=== PATIENT | male | born 1945 | race Caucasian/White ===

== ENCOUNTER → 2019-06-21 16:04 | Outpatient (CLI) | payer OTHER, SELFPAY ==
[2019-06-21 16:44] LABS: Add Manual Diff / Slide Review NO; Basophils Absolute Auto 0 /uL (0-100); Basophils Percent Auto 0.6 % (0-2); Eosinophils Absolute Auto 200 /uL (0-450); Eosinophils Percent Auto 3.4 % (2-4); Hematocrit 41.7 % (41-53); Hemoglobin 14.1 g/dL (13.5-17.5); Lymphocytes Absolute Auto 1500 /uL (1100-4500); Lymphocytes Percent Auto 25.9 % (25-40); Mean Corpuscular HGB Conc 33.9 % (30-36); Mean Corpuscular Hemoglobin 30.7 PG (26-34); Mean Corpuscular Volume 90.6 fL (80-100); Monocytes Absolute Auto 500 /uL (0-900); Neutrophils Absolute Auto 3600 /uL (1500-7000); Neutrophils Percent Auto 61.1 % (50-75); Platelet Count 140 X10^3/uL (150-400); Red Cell Distribution Width 13.3 % (11.6-14.8)
[2019-06-21 17:23] LABS: Alanine Aminotransferase 23 IU/L (21-72); Albumin 4.2 g/dL (3.5-5.0); Albumin Globulin Ratio 1.6 (1.0-2.8); Alkaline Phosphatase 50 U/L (38-126); Aspartate Aminotransferase 29 IU/L (17-59); BUN Creatinine Ratio 33.8 (6-22); Bilirubin Total 0.4 mg/dL (0.2-1.3); Blood Urea Nitrogen 27 mg/dL (9-20); Calcium 9.3 mg/dL (8.4-10.2); Carbon Dioxide 24 mmol/L (22-32); Chloride 104 mmol/L (98-107); Cholesterol 114 mg/dL (140-199); Estimated Glomerular Filt Rate > 60.0 mL/min (>60); Globulin 2.6 g/dL (1.7-4.1); Glucose 91 mg/dL (80-110); HDL Cholesterol 56 mg/dL (40-60); HEMOLYSIS < 15 (0-50); LDL Cholesterol Calculated 42 mg/dL (<100); Potassium 4.6 mmol/L (3.4-5.1); Sodium 137 mmol/L (137-145); Total Protein 6.8 g/dL (6.3-8.2); Triglycerides 81 mg/dL (35-150)
== END ==
PROVIDERS: PCP Internal Medicine; Visit Provider Internal Medicine
DX: M19.90 Unspecified osteoarthritis, unspecified site (principal); I25.10 Atherosclerotic heart disease of native coronary artery without angina pectoris; I10 Essential (primary) hypertension; D69.49 Other primary thrombocytopenia
CPT/HCPCS: 36415; 80053; 80061; 85025

== ENCOUNTER 2019-07-09 07:30 | Outpatient (RCR) | payer OTHER, SELFPAY ==
--- NOTE | 2019-05-25 16:20 | PT.OIE ---
Current Diagnoses Stiffness of right shoulder, not elsewhere classified (05/25/19) Incomplete rotator cuff tear or rupture of right shoulder, not specified as traumatic (05/25/19) Weakness (05/25/19) Visit Care Team Role Provider Type Jeronimo Alvarez MD Primary Care Provider Physician Specialty: Internal Medicine Address: [address] [place] [address] Email: [email or web address] Attending Provider Advanced Ship Manager Specialty: Internal Medicine Address: [address] [place] [address], [id number] Email: [email or web address] Physical Therapy Initial Evaluation PT-OP-A Visit Information Start: 05/25/19 15:34 Freq: Status: Active Protocol: Document 05/25/19 11:15 DCW (Rec: 05/25/19 16:19 DCW [id number]) Out-Patient Physical Therapy Visit Information Visit Information Visit Type Initial Evaluation Visit Start Time 11:15 Visit Stop Time 11:55 Total Visit Minutes 40 Visit Number 1 Number of PROJECT ACCOUNTANT Visits 0 Evaluation Information Evaluation Date 05/25/19 PT-OP-B Current Condition Start: 05/25/19 15:34 Freq: Status: Active Protocol: Document 05/25/19 11:15 DCW (Rec: 05/25/19 16:19 DCW [id number]) Current Condition History of Current Condition Onset Date s/p 2-3 months Current Complaints Right shoulder pain and decreased ROM History of Current Condition Pt is a 74 year old male presenting with a 2-3 month history of right shoulder pain . Pt cannot remember any specific injury, it just started burning one day. Pt notes that initially, he just ignored it, but it kept worsening and worsening, until he finally changed his shoulder exercise routine one month ago. Pt reports since cutting out dumbbell presses and lateral dumbbell lifts, his pain has decreased, but it is still there. Pt reports that he does continue to perform some overhead lifting activities that are part of his routine. Pt has a history of bilateral shoulder replacements, with the right a standard TSA and the left a reverse TSA, as well as prior rotator cuff tear on the left. Pt reports that he works part -time at [employer] in [employer], which he notes is very physical, and his shoulder pain has not stopped him from performing his job, but it does get uncomfortable . PT-OP-C Subjective Start: 05/25/19 15:34 Freq: Status: Active Protocol: Document 05/25/19 11:15 DCW (Rec: 05/25/19 16:19 DCW [id number]) OP-PT Subjective Patient Comments Patient Reported Progress Improving Patient Questionnaires Quick Dash- Upper Extremity Quick Dash UE Score 11.36 Quick Dash UE Impairment 1 to 19% Impaired (Score 1-19) OP-PT Pain Assessment Pain Assessment Grid Paper Pain Assessment Grid Completed Yes Location Right superior shoulder Intensity 3 Scale Used Numeric (1 - 10) Description Burning PT-OP-E Functional Tests Start: 05/25/19 15:34 Freq: Status: Active Protocol: Document 05/25/19 11:15 DCW (Rec: 05/25/19 16:19 DCW [id number]) Functional Tests Apley's Scratch Test Action 2- Left C7 Action 2- Right C7 Action 3- Left T6 Action 3- Right T9 PT-OP-K Range of Motion Start: 05/25/19 15:34 Freq: Status: Active Protocol: Document 05/25/19 11:15 DCW (Rec: 05/25/19 16:19 DCW [id number]) Shoulder Goniometric Range of Motion Shoulder Right Active Flexion 170 Abduction 150 Left Active Testing Position Sitting Flexion 170 Abduction 150 Shoulder ROM Limitations Comments Limitations at 150? bilaterally in abduction pt reports are not new, the ongoing ROM loss has been present since his TSA. PT-OP-L Special Tests Start: 05/25/19 15:34 Freq: Status: Active Protocol: Document 05/25/19 11:15 DCW (Rec: 05/25/19 16:19 DCW [id number]) Special Tests Shoulder Special Tests Yergason's Biceps Test Results Negative Speed's Biceps Test Results Negative Black Anthony Impingement Test Results Positive R Painful Arc Test Results Negative Drop Arm Rotator Cuff Test Results Negative Lift-Off Rotator Cuff Test Results Negative Empty Can Test Results Negative Belly Press Test Results Negative Apprehension Test Test Results Negative PT-OP-M Strength Start: 05/25/19 15:34 Freq: Status: Active Protocol: Document 05/25/19 11:15 DCW (Rec: 05/25/19 16:19 DCW [id number]) Shoulder Strength Shoulder Manual Muscle Testing Right Flexion 5 Normal Abduction (C5) 4 Good External Rotation 4 Good Internal Rotation 5 Normal Comments MMT limited more by pain than true weakness Left Flexion 5 Normal Abduction (C5) 5 Normal External Rotation 5 Normal Internal Rotation 5 Normal PT-OP-Q Treatments Start: 05/25/19 15:34 Freq: Status: Active Protocol: Document 05/25/19 11:15 DCW (Rec: 05/25/19 16:19 DCW [id number]) Self-Care/Home Management Treatment Education Patient Education Home Exercise Program,Posture, Safety Other Education Limit pt's overhead lifting during exercise routine PT-OP-T Assessment and Plan Start: 05/25/19 15:34 Freq: Status: Active Protocol: Document 05/25/19 11:15 DCW (Rec: 05/25/19 16:19 DCW [id number]) Physical Therapy Assessment Rehab Potential Rehabilitation Potential Excellent Evaluation Complexity Number of Personal Factors/Comorbidities 0 Number of Body Systems Impaired 1-2 Clinical Presentation at Evaluation Stable Impairments Impairments Pain,ROM,Strength Goals Two Impairment Pt's right shoulder pain increases while at work Longterm Goal (LTG) Pt to perform a full work day at [facility] with no increased pain 75% of his work days over a two week period LTG Duration 07/25/19 One Impairment Pt's overhead lifting program currently causes increased symptoms Short Term Goal (STG) Pt to correct current weightlifting routine in order to limit aggravation and irritation of supraspinatus tendon STG Duration 06/25/19 Assessment Summary Assessment Pt presents with signs and symptoms consistent with a supraspinatus sprain or mild tear, as well as probable impingement of his supraspinatus tendon under the acromion. Testing today was largely negative, however pt does experience increased pain with activation of supraspinatus during resisted abduction, and had a positive Black Anthony impingement test. Pt strength, other than R abduction and ER, is 5/5, and pt already has an extensive weight-lifting routine her performs 5x/week. Pt has already made significant progress in recovery after changing his lifting routine. Pt instructed in further change to limit over-head lifting and decrease impingement of supraspinatus tendon, allowing for rest and healing. Pt's rehab course may be limited by his extensive shoulder injury history, including bilateral TSA and a prior L R/C tear, however pt will likely respond well to therapist's suggestions and should continue to recover with minimal further intervention. Pt agreeable to cancel his next visit to give himself one week to implement changes to his routine, and retun next Tuesday to discuss his current level of dysfunction. Physical Therapy Plan Frequency and Duration Frequency of Treatment 2x/Week Duration of Treatment 2 months Plan of Care Start Date 05/25/19 Plan of Care End Date 07/25/19 Therapeutic Interventions Therapeutic Interventions Home Exercise Program,Joint Mobilizations,Manual Therapy, Patient/Caregiver Education, Self-Care/Home Management,Soft Tissue Mobilization, Therapeutic Exercises Next Visit Focus/Plan Next Note Type Treatment Note Next Visit Plan Address questions/concerns regarding pt's home program, STM, addition of shoulder strengthening with proper form
--- NOTE | 2019-05-25 16:21 | PT.OPPOC ---
Current Diagnoses Stiffness of right shoulder, not elsewhere classified (05/25/19) Incomplete rotator cuff tear or rupture of right shoulder, not specified as traumatic (05/25/19) Weakness (05/25/19) Visit Care Team Role Provider Type Jeronimo Alvarez MD Primary Care Provider Physician Specialty: Internal Medicine Address: [address] [place] [address], [facility] Email: [email or web address]-C Attending Provider Advanced Senior [employer] Programmer Specialty: Internal Medicine Address: [address] [place] [address], [address] Email: [email or web address] Plan Of Care PT-OP-T Assessment and Plan Start: 05/25/19 15:34 Freq: Status: Active Protocol: Document 05/25/19 11:15 DCW (Rec: 05/25/19 16:19 DCW [id number]) Physical Therapy Assessment Rehab Potential Rehabilitation Potential Excellent Evaluation Complexity Number of Personal Factors/Comorbidities 0 Number of Body Systems Impaired 1-2 Clinical Presentation at Evaluation Stable Impairments Impairments Pain,ROM,Strength Goals Two Impairment 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[employer] Goal (LTG) Pt to perform a full work day at [facility] with no increased pain 75% of his work days over a two week period LTG Duration 07/25/19 One Impairment Pt's overhead lifting program currently causes increased symptoms Short Term Goal (STG) Pt to correct current weightlifting routine in order to limit aggravation and irritation of supraspinatus tendon STG Duration 06/25/19 Assessment Summary Assessment Pt presents with signs and symptoms consistant with a supraspinatus sprain or mild tear, as well as probable impingement of his supraspinatus tendon under the acromion. Testing today was largely negative, however pt does experience increased pain with activation of supraspinatus during resisted abduction, and had a positive Black Anthony impingement test. Pt strength, other than R abduction and ER, is 5/5, and pt already has an extensive weight-lifting routine her performs 5x/week. Pt has already made significant progress in recovery after changing his lifting routine. Pt instructed in further change to limit over-head lifting and decrease impingement of supraspinatus tendon, allowing for rest and healing. Pt's rehab course may be limited by his extensive shoulder injury history, including bilateral TSA and a prior L R/C tear, however pt will likely respond well to therapist's suggestions and should continue to recover with minimal further intervention. Pt agreeable to cancel his next visit to give himself one week to implement changes to his routine, and return next Tuesday to discuss his current level of dysfunction. Physical Therapy Plan Frequency and Duration Frequency of Treatment 2x/Week Duration of Treatment 2 months Plan of Care Start Date 05/25/19 Plan of Care End Date 07/25/19 Therapeutic Interventions Therapeutic Interventions Home Exercise Program,Joint Mobilizations,Manual Therapy, Patient/Caregiver Education, Self-Care/Home Management,Soft Tissue Mobilization, Therapeutic Exercises Next Visit Focus/Plan Next Note Type Treatment Note Next Visit Plan Address questions/concerns regarding pt's home program, STM, addition of shoulder strengthening with proper form Plan of Care Dates Plan of Care Start Date 05/25/19 Plan of Care End Date 07/25/19
--- NOTE | 2019-06-01 08:34 | PT.OTN ---
Current Diagnoses Stiffness of right shoulder, not elsewhere classified (06/01/19) Incomplete rotator cuff tear or rupture of right shoulder, not specified as traumatic (06/01/19) Weakness (06/01/19) Physical Therapy Treatment Note PT-OP-A Visit Information Start: 05/25/19 15:34 Freq: Status: Active Protocol: Document 06/01/19 07:32 MB (Rec: 06/01/19 08:34 MB [id number]) Out-Patient Physical Therapy Visit Information Visit Information Visit Type Treatment Note Visit Note Initiated PNF, resisted isometrics and AAROM with cane in supine today. Visit Start Time 07:32 Visit Stop Time 08:15 Total Visit Minutes 43 Visit Number 10/06 Number of PLANT CYTOLOGIST Visits 0 PT-OP-B Current Condition Start: 05/25/19 15:34 Freq: Status: Active Protocol: Document 05/25/19 11:15 DCW (Rec: 05/25/19 16:19 DCW [id number]) Current Condition History of Current Condition Onset Date s/p 2-3 months Current Complaints Right shoulder pain and decreased ROM History of Current Condition Pt is a 74 year old male presenting with a 2-3 month history of right shoulder pain . Pt cannot remember any specific injury, it just started burning one day. Pt notes that initially, he just ignored it, but it kept worsening and worsening, until he finally changed his shoulder exercise routine one month ago. Pt reports since cutting out dumbbell presses and lateral dumbbell lifts, his pain has decreased, but it is still there. Pt reports that he does continue to perform some overhead lifting activities that are part of his routine. Pt has a history of bilateral shoulder replacements, with the right a standard TSA and the left a reverse TSA, as well as prior rotator cuff tear on the left. 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 PT-OP-C Subjective Start: 05/25/19 15:34 Freq: Status: Active Protocol: Document 06/01/19 07:32 MB (Rec: 06/01/19 08:28 MB [id number]) OP-PT Subjective Patient Comments Patient Comments Pt states that he felt a strain in his right shoulder two months when exercising. 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 PT-OP-E Functional Tests Start: 05/25/19 15:34 Freq: Status: Active Protocol: Document 05/25/19 11:15 DCW (Rec: 05/25/19 16:19 DCW [id number]) Functional Tests Apley's Scratch Test Action 2- Left C7 Action 2- Right C7 Action 3- Left T6 Action 3- Right T9 PT-OP-K Range of Motion Start: 05/25/19 15:34 Freq: Status: Active Protocol: Document 05/25/19 11:15 DCW (Rec: 05/25/19 16:19 DCW [id number]) Shoulder Goniometric Range of Motion Shoulder Right Active Flexion 170 Abduction 150 Left Active Testing Position Sitting Flexion 170 Abduction 150 Shoulder ROM Limitations Comments Limitations at 150? bilaterally in abduction pt reports are not new, the ongoing ROM loss has been present since his TSA. PT-OP-L Special Tests Start: 05/25/19 15:34 Freq: Status: Active Protocol: Document 05/25/19 11:15 DCW (Rec: 05/25/19 16:19 DCW [id number]) Special Tests Shoulder Special Tests Yergason's Biceps Test Results Negative Speed's Biceps Test Results Negative Black Anthony Impingement Test Results Positive R Painful Arc Test Results Negative Drop Arm Rotator Cuff Test Results Negative Lift-Off Rotator Cuff Test Results Negative Empty Can Test Results Negative Belly Press Test Results Negative Apprehension Test Test Results Negative PT-OP-M Strength Start: 05/25/19 15:34 Freq: Status: Active Protocol: Document 05/25/19 11:15 DCW (Rec: 05/25/19 16:19 DCW [id number]) Shoulder Strength Shoulder Manual Muscle Testing Right Flexion 5 Normal Abduction (C5) 4 Good External Rotation 4 Good Internal Rotation 5 Normal Comments MMT limited more by pain than true weakness Left Flexion 5 Normal Abduction (C5) 5 Normal External Rotation 5 Normal Internal Rotation 5 Normal PT-OP-Q Treatments Start: 05/25/19 15:34 Freq: Status: Active Protocol: Document 06/01/19 07:32 MB (Rec: 06/01/19 08:28 MB [id number]) Therapeutic Exercises Other Exercises Cane flexion, abduction and ER Comments Supine neck support, cane flexion, abduction, and ER with resisted isometri Manual Therapy Treatment Other Other Manual Treatments Supine, right shoulder ER PNF and resisted isometric to improve range PT-OP-T Assessment and Plan Start: 05/25/19 15:34 Freq: Status: Active Protocol: Document 06/01/19 07:32 MB (Rec: 06/01/19 08:34 MB [id number]) Physical Therapy Assessment Goals Two Impairment Pt's right shoulder pain increases while at work [employer] Goal (LTG) Pt to perform a full work day at [facility] with no increased pain 75% of his work days over a two week period LTG Duration 07/25/19 One Impairment Pt's overhead lifting program currently causes increased symptoms Short Term Goal (STG) Pt to correct current weightlifting routine in order to limit aggravation and irritation of supraspinatus tendon STG Duration 06/25/19 Physical Therapy Plan Frequency and Duration Frequency of Treatment 2x/Week Duration of Treatment 2 months Plan of Care Start Date 05/25/19 Plan of Care End Date 07/25/19 Therapeutic Interventions Therapeutic Interventions Home Exercise Program,Joint Mobilizations,Manual Therapy, Patient/Caregiver Education, Self-Care/Home Management,Soft Tissue Mobilization, Therapeutic Exercises Next Visit Focus/Plan Next Note Type Treatment Note Next Visit Plan Consider teaching MWM with racquet ball, work on thoracic spine, cervical spine (traps, middle scalene, rotators) and progress PNF
--- NOTE | 2019-06-04 10:36 | PT.OTN ---
Current Diagnoses Stiffness of right shoulder, not elsewhere classified (06/04/19) Incomplete rotator cuff tear or rupture of right shoulder, not specified as traumatic (06/04/19) Weakness (06/04/19) Physical Therapy Treatment Note PT-OP-A Visit Information Start: 05/25/19 15:34 Freq: Status: Active Protocol: Document 06/04/19 07:30 MB (Rec: 06/04/19 07:38 MB [id number]) Out-Patient Physical Therapy Visit Information Visit Information Visit Type Treatment Note Visit Start Time 07:30 Visit Stop Time 08:10 Total Visit Minutes 40 Visit Number 3/15 Number of CATSHOVEL DRIVER Visits 0 PT-OP-B Current Condition Start: 05/25/19 15:34 Freq: Status: Active Protocol: Document 05/25/19 11:15 DCW (Rec: 05/25/19 16:19 DCW [id number]) Current Condition History of Current Condition Onset Date s/p 2-3 months Current Complaints Right shoulder pain and decreased ROM History of Current Condition Pt is a 74 year old male presenting with a 2-3 month history of right shoulder pain . Pt cannot remember any specific injury, it just started burning one day. Pt notes that initially, he just ignored it, but it kept worsening and worsening, until he finally changed his shoulder exercise routine one month ago. Pt reports since cutting out dumbbell presses and lateral dumbbell lifts, his pain has decreased, but it is still there. Pt reports that he does continue to perform some overhead lifting activities that are part of his routine. Pt has a history of bilateral shoulder replacements, with the right a standard TSA and the left a reverse TSA, as well as prior rotator cuff tear on the left. Pt reports that he works part -time at [employer] in [employer], which he notes is very physical, and his shoulder pain has not stopped him from performing his job, but it does get uncomfortable . PT-OP-C Subjective Start: 05/25/19 15:34 Freq: Status: Active Protocol: Document 06/04/19 07:30 MB (Rec: 06/04/19 07:38 MB [id number]) OP-PT Subjective Patient Comments Patient Comments Pt states that he might have overdone it with PNF on Tuesday. He started his diesal class and did a little twist and tweeked his shoulder . He is feeling better today. PT-OP-E Functional Tests Start: 05/25/19 15:34 Freq: Status: Active Protocol: Document 05/25/19 11:15 DCW (Rec: 05/25/19 16:19 DCW [id number]) Functional Tests Apley's Scratch Test Action 2- Left C7 Action 2- Right C7 Action 3- Left T6 Action 3- Right T9 PT-OP-K Range of Motion Start: 05/25/19 15:34 Freq: Status: Active Protocol: Document 05/25/19 11:15 DCW (Rec: 05/25/19 16:19 DCW [id number]) Shoulder Goniometric Range of Motion Shoulder Right Active Flexion 170 Abduction 150 Left Active Testing Position Sitting Flexion 170 Abduction 150 Shoulder ROM Limitations Comments Limitations at 150? bilaterally in abduction pt reports are not new, the ongoing ROM loss has been present since his TSA. PT-OP-L Special Tests Start: 05/25/19 15:34 Freq: Status: Active Protocol: Document 05/25/19 11:15 DCW (Rec: 05/25/19 16:19 DCW [id number]) Special Tests Shoulder Special Tests Yergason's Biceps Test Results Negative Speed's Biceps Test Results Negative Black Anthony Impingement Test Results Positive R Painful Arc Test Results Negative Drop Arm Rotator Cuff Test Results Negative Lift-Off Rotator Cuff Test Results Negative Empty Can Test Results Negative Belly Press Test Results Negative Apprehension Test Test Results Negative PT-OP-M Strength Start: 05/25/19 15:34 Freq: Status: Active Protocol: Document 05/25/19 11:15 DCW (Rec: 05/25/19 16:19 DCW [id number]) Shoulder Strength Shoulder Manual Muscle Testing Right Flexion 5 Normal Abduction (C5) 4 Good External Rotation 4 Good Internal Rotation 5 Normal Comments MMT limited more by pain than true weakness Left Flexion 5 Normal Abduction (C5) 5 Normal External Rotation 5 Normal Internal Rotation 5 Normal PT-OP-Q Treatments Start: 05/25/19 15:34 Freq: Status: Active Protocol: Document 06/04/19 07:30 MB (Rec: 06/04/19 07:54 MB [id number]) Cardio Equipment Upper Body Ergometer (UBE) Duration (Minutes) 6 Other 3 minutes forward and 3 minutes backwards Therapeutic Exercises Standing Exercises Racquet ball massage Comments Racquet ball massage upper traps, intrascapular, deltoid and infra Manual Therapy Treatment Other Other Manual Treatments Supine, right shoulder ER PNF and resisted isometric to improve range. 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 He responds well to manual work. Physical Therapy Plan Frequency and Duration Frequency of Treatment 2x/Week Duration of Treatment 2 months Plan of Care Start Date 05/25/19 Plan of Care End Date 07/25/19 Next Visit Focus/Plan Next Note Type Treatment Note Next Visit Plan Consider work on thoracic spine, cervical spine (traps, middle scalene, rotators) and progress PNF. Consider first rib mob, elevated first rib
--- NOTE | 2019-06-08 08:12 | PT.OTN ---
Current Diagnoses Stiffness of right shoulder, not elsewhere classified (06/08/19) Incomplete rotator cuff tear or rupture of right shoulder, not specified as traumatic (06/08/19) Weakness (06/08/19) Physical Therapy Treatment Note PT-OP-A Visit Information Start: 05/25/19 15:34 Freq: Status: Active Protocol: Document 06/08/19 07:30 MB (Rec: 06/08/19 08:12 MB [id number]) Out-Patient Physical Therapy Visit Information Visit Information Visit Type Treatment Note Visit Start Time 07:30 Visit Stop Time 08:10 Total Visit Minutes 40 Visit Number 4/15 Number of SCHOOL BUS MONITOR Visits 0 PT-OP-B Current Condition Start: 05/25/19 15:34 Freq: Status: Active Protocol: Document 05/25/19 11:15 DCW (Rec: 05/25/19 16:19 DCW [id number]) Current Condition History of Current Condition Onset Date s/p 2-3 months Current Complaints Right shoulder pain and decreased ROM History of Current Condition Pt is a 74 year old male presenting with a 2-3 month history of right shoulder pain . Pt cannot remember any specific injury, it just started burning one day. Pt notes that initially, he just ignored it, but it kept worsening and worsening, until he finally changed his shoulder exercise routine one month ago. Pt reports since cutting out dumbbell presses and lateral dumbbell lifts, his pain has decreased, but it is still there. Pt reports that he does continue to perform some overhead lifting activities that are part of his routine. Pt has a history of bilateral shoulder replacements, with the right a standard TSA and the left a reverse TSA, as well as prior rotator cuff tear on the left. Pt reports that he works part -time at [employer] in [place], which he notes is very physical, and his shoulder pain has not stopped him from performing his job, but it does get uncomfortable . 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 He is a little stiff today. Patient Reported Progress Improving PT-OP-E Functional Tests Start: 05/25/19 15:34 Freq: Status: Active Protocol: Document 05/25/19 11:15 DCW (Rec: 05/25/19 16:19 DCW [id number]) Functional Tests Apley's Scratch Test Action 2- Left C7 Action 2- Right C7 Action 3- Left T6 Action 3- Right T9 PT-OP-K Range of Motion Start: 05/25/19 15:34 Freq: Status: Active Protocol: Document 05/25/19 11:15 DCW (Rec: 05/25/19 16:19 DCW [id number]) Shoulder Goniometric Range of Motion Shoulder Right Active Flexion 170 Abduction 150 Left Active Testing Position Sitting Flexion 170 Abduction 150 Shoulder ROM Limitations Comments Limitations at 150? bilaterally in abduction pt reports are not new, the ongoing ROM loss has been present since his TSA. PT-OP-L Special Tests Start: 05/25/19 15:34 Freq: Status: Active Protocol: Document 05/25/19 11:15 DCW (Rec: 05/25/19 16:19 DCW [id number]) Special Tests Shoulder Special Tests Yergason's Biceps Test Results Negative Speed's Biceps Test Results Negative Black Anthony Impingement Test Results Positive R Painful Arc Test Results Negative Drop Arm Rotator Cuff Test Results Negative Lift-Off Rotator Cuff Test Results Negative Empty Can Test Results Negative Belly Press Test Results Negative Apprehension Test Test Results Negative PT-OP-M Strength Start: 05/25/19 15:34 Freq: Status: Active Protocol: Document 05/25/19 11:15 DCW (Rec: 05/25/19 16:19 DCW [id number]) Shoulder Strength Shoulder Manual Muscle Testing Right Flexion 5 Normal Abduction (C5) 4 Good External Rotation 4 Good Internal Rotation 5 Normal Comments MMT limited more by pain than true weakness Left Flexion 5 Normal Abduction (C5) 5 Normal External Rotation 5 Normal Internal Rotation 5 Normal PT-OP-Q Treatments Start: 05/25/19 15:34 Freq: Status: Active Protocol: Document 06/08/19 07:30 MB (Rec: 06/08/19 08:12 MB [id number]) Cardio Equipment Upper Body Ergometer (UBE) Duration (Minutes) 6 Other 3 minutes forward and 3 minutes backwards Therapeutic Exercises Supine Exercises Posterior capsule stretch Comments Supine or standing post capsule stretch R Standing Exercises Pect stretch doorway Comments Progressive pect stretch doorway Racquet ball massage Comments Racquet ball massage upper traps, intrascapular, deltoid and infra PT-OP-T Assessment and Plan Start: 05/25/19 15:34 Freq: Status: Active Protocol: Document 06/08/19 07:30 MB (Rec: 06/08/19 08:12 MB [id number]) Physical Therapy Assessment Goals Two Impairment Pt's right shoulder pain increases while at work Penitentiary Goal (LTG) Pt to perform a full work day at [facility] with no increased pain 75% of his work days over a two week period LTG Duration 07/25/19 One Impairment Pt's overhead lifting program currently causes increased symptoms Short Term Goal (STG) Pt to correct current weightlifting routine in order to limit aggravation and irritation of supraspinatus tendon STG Duration 06/25/19 Assessment Summary Assessment Pt con't with thoracic tightness and right shoulder elevation that improves with pect stretch in doorway with active arm slide up and down and VCs. Progressed intrascapular strenthening, posterior capsule stretch, raquetball massage as well. Physical Therapy Plan Frequency and Duration Frequency of Treatment 2x/Week Duration of Treatment 2 months Plan of Care Start Date 05/25/19 Plan of Care End Date 07/25/19 Therapeutic Interventions Therapeutic Interventions Home Exercise Program,Joint Mobilizations,Manual Therapy, Patient/Caregiver Education, Self-Care/Home Management,Soft Tissue Mobilization, Therapeutic Exercises Next Visit Focus/Plan Next Note Type Treatment Note Next Visit Plan Consider work on thoracic spine, cervical spine (traps, middle scalene, rotators) and progress PNF, thoracic mobility. Check and work on right first rib mobility.
--- NOTE | 2019-06-11 08:18 | PT.OTN ---
Current Diagnoses Stiffness of right shoulder, not elsewhere classified (06/11/19) Incomplete rotator cuff tear or rupture of right shoulder, not specified as traumatic (06/11/19) Weakness (06/11/19) Physical Therapy Treatment Note PT-OP-A Visit Information Start: 05/25/19 15:34 Freq: Status: Active Protocol: Document 06/11/19 08:11 SP (Rec: 06/11/19 08:17 SP [email or web address]) Out-Patient Physical Therapy Visit Information Visit Information Visit Type Treatment Note Visit Start Time 07:30 Visit Stop Time 08:15 Total Visit Minutes 45 Visit Number 01/03 Number of MACHINE DESIGNER Visits 1 PT-OP-B Current Condition Start: 05/25/19 15:34 Freq: Status: Active Protocol: Document 05/25/19 11:15 DCW (Rec: 05/25/19 16:19 DCW [id number]) Current Condition History of Current Condition Onset Date s/p 2-3 months Current Complaints Right shoulder pain and decreased ROM History of Current Condition Pt is a 74 year old male presenting with a 2-3 month history of right shoulder pain . Pt cannot remember any specific injury, it just started burning one day. Pt notes that initially, he just ignored it, but it kept worsening and worsening, until he finally changed his shoulder exercise routine one month ago. Pt reports since cutting out dumbbell presses and lateral dumbbell lifts, his pain has decreased, but it is still there. Pt reports that he does continue to perform some overhead lifting activities that are part of his routine. Pt has a history of bilateral shoulder replacements, with the right a standard TSA and the left a reverse TSA, as well as prior rotator cuff tear on the left. Pt reports that he works part -time at [employer] in [place], which he notes is very physical, and his shoulder pain has not stopped him from performing his job, but it does get uncomfortable . PT-OP-C Subjective Start: 05/25/19 15:34 Freq: Status: Active Protocol: Document 06/11/19 08:17 SP (Rec: 06/11/19 08:18 SP [email or web address]) OP-PT Subjective Patient Comments Patient Comments Pt reported feeling pretty good still same maybe R shld/neck discomfort. Compliant with HEP, no adverse affects to last tx. Patient Reported Progress Improving PT-OP-E Functional Tests Start: 05/25/19 15:34 Freq: Status: Active Protocol: Document 05/25/19 11:15 DCW (Rec: 05/25/19 16:19 DCW [id number]) Functional Tests Apley's Scratch Test Action 2- Left C7 Action 2- Right C7 Action 3- Left T6 Action 3- Right T9 PT-OP-K Range of Motion Start: 05/25/19 15:34 Freq: Status: Active Protocol: Document 05/25/19 11:15 DCW (Rec: 05/25/19 16:19 DCW [id number]) Shoulder Goniometric Range of Motion Shoulder Right Active Flexion 170 Abduction 150 Left Active Testing Position Sitting Flexion 170 Abduction 150 Shoulder ROM Limitations Comments Limitations at 150? bilaterally in abduction pt reports are not new, the ongoing ROM loss has been present since his TSA. PT-OP-L Special Tests Start: 05/25/19 15:34 Freq: Status: Active Protocol: Document 05/25/19 11:15 DCW (Rec: 05/25/19 16:19 DCW [id number]) Special Tests Shoulder Special Tests Yergason's Biceps Test Results Negative Speed's Biceps Test Results Negative Black Anthony Impingement Test Results Positive R Painful Arc Test Results Negative Drop Arm Rotator Cuff Test Results Negative Lift-Off Rotator Cuff Test Results Negative Empty Can Test Results Negative Belly Press Test Results Negative Apprehension Test Test Results Negative PT-OP-M Strength Start: 05/25/19 15:34 Freq: Status: Active Protocol: Document 05/25/19 11:15 DCW (Rec: 05/25/19 16:19 DCW [id number]) Shoulder Strength Shoulder Manual Muscle Testing Right Flexion 5 Normal Abduction (C5) 4 Good External Rotation 4 Good Internal Rotation 5 Normal Comments MMT limited more by pain than true weakness Left Flexion 5 Normal Abduction (C5) 5 Normal External Rotation 5 Normal Internal Rotation 5 Normal PT-OP-Q Treatments Start: 05/25/19 15:34 Freq: Status: Active Protocol: Document 06/11/19 08:11 SP (Rec: 06/11/19 08:17 SP [email or web address]) Therapeutic Exercises Supine Exercises pec stretch Equipment Used noodle Reps/Minutes 3 min Comments let scapula settle inferiorly Sidelying Exercises TS rotation Side bilateral Resistance AROM Reps/Minutes 10 Comments cued TS rotation and scapular glide Standing Exercises shld er Side right Equipment Used level 1 band Reps/Minutes 2x10 Comments cued scap depression to neutral lat pull down Side right Equipment Used level 1 band Reps/Minutes 2x10 Comments cued scapular depression to neutral Pect stretch doorway Comments Progressive pect stretch doorway PT-OP-T Assessment and Plan Start: 05/25/19 15:34 Freq: Status: Active Protocol: Document 06/11/19 08:11 SP (Rec: 06/11/19 08:17 SP [email or web address]) Physical Therapy Assessment Assessment Summary Assessment Tx focused on scapular depression and scapular/TS mobility. Cued for lower trap activation with mirror for self feedback at gym and outside person comments. Physical Therapy Plan Frequency and Duration Frequency of Treatment 2x/Week Duration of Treatment 2 months Plan of Care Start Date 05/25/19 Plan of Care End Date 07/25/19 Therapeutic Interventions Therapeutic Interventions Home Exercise Program,Joint Mobilizations,Manual Therapy, Patient/Caregiver Education, Self-Care/Home Management,Soft Tissue Mobilization, Therapeutic Exercises Next Visit Focus/Plan Next Note Type Treatment Note Next Visit Plan Consider work on thoracic spine, cervical spine (traps, middle scalene, rotators) and progress PNF, thoracic mobility. Check and work on right first rib mobility.
--- NOTE | 2019-06-11 08:19 | PT.OTN ---
Current Diagnoses Stiffness of right shoulder, not elsewhere classified (06/11/19) Incomplete rotator cuff tear or rupture of right shoulder, not specified as traumatic (06/11/19) Weakness (06/11/19) Physical Therapy Treatment Note PT-OP-A Visit Information Start: 05/25/19 15:34 Freq: Status: Active Protocol: Document 06/11/19 08:11 SP (Rec: 06/11/19 08:17 SP [email or web address]) Out-Patient Physical Therapy Visit Information Visit Information Visit Type Treatment Note Visit Start Time 07:30 Visit Stop Time 08:15 Total Visit Minutes 45 Visit Number 01/03 Number of PE ELECTRICAL ENGINEER Visits 1 PT-OP-B Current Condition Start: 05/25/19 15:34 Freq: Status: Active Protocol: Document 05/25/19 11:15 DCW (Rec: 05/25/19 16:19 DCW [id number]) Current Condition History of Current Condition Onset Date s/p 2-3 months Current Complaints Right shoulder pain and decreased ROM History of Current Condition Pt is a 74 year old male presenting with a 2-3 month history of right shoulder pain . Pt cannot remember any specific injury, it just started burning one day. Pt notes that initially, he just ignored it, but it kept worsening and worsening, until he finally changed his shoulder exercise routine one month ago. Pt reports since cutting out dumbbell presses and lateral dumbbell lifts, his pain has decreased, but it is still there. Pt reports that he does continue to perform some overhead lifting activities that are part of his routine. Pt has a history of bilateral shoulder replacements, with the right a standard TSA and the left a reverse TSA, as well as prior rotator cuff tear on the left. Pt reports that he works part -time at [employer] in [place], which he notes is very physical, and his shoulder pain has not stopped him from performing his job, but it does get uncomfortable . PT-OP-C Subjective Start: 05/25/19 15:34 Freq: Status: Active Protocol: Document 06/11/19 08:17 SP (Rec: 06/11/19 08:18 SP [email or web address]) OP-PT Subjective Patient Comments Patient Comments Pt reported feeling pretty good still same maybe R shld/neck discomfort. Compliant with HEP, no adverse affects to last tx. Patient Reported Progress Improving PT-OP-E Functional Tests Start: 05/25/19 15:34 Freq: Status: Active Protocol: Document 05/25/19 11:15 DCW (Rec: 05/25/19 16:19 DCW [id number]) Functional Tests Apley's Scratch Test Action 2- Left C7 Action 2- Right C7 Action 3- Left T6 Action 3- Right T9 PT-OP-K Range of Motion Start: 05/25/19 15:34 Freq: Status: Active Protocol: Document 05/25/19 11:15 DCW (Rec: 05/25/19 16:19 DCW [id number]) Shoulder Goniometric Range of Motion Shoulder Right Active Flexion 170 Abduction 150 Left Active Testing Position Sitting Flexion 170 Abduction 150 Shoulder ROM Limitations Comments Limitations at 150? bilaterally in abduction pt reports are not new, the ongoing ROM loss has been present since his TSA. PT-OP-L Special Tests Start: 05/25/19 15:34 Freq: Status: Active Protocol: Document 05/25/19 11:15 DCW (Rec: 05/25/19 16:19 DCW [id number]) Special Tests Shoulder Special Tests Yergason's Biceps Test Results Negative Speed's Biceps Test Results Negative Black Anthony Impingement Test Results Positive R Painful Arc Test Results Negative Drop Arm Rotator Cuff Test Results Negative Lift-Off Rotator Cuff Test Results Negative Empty Can Test Results Negative Belly Press Test Results Negative Apprehension Test Test Results Negative PT-OP-M Strength Start: 05/25/19 15:34 Freq: Status: Active Protocol: Document 05/25/19 11:15 DCW (Rec: 05/25/19 16:19 DCW [id number]) Shoulder Strength Shoulder Manual Muscle Testing Right Flexion 5 Normal Abduction (C5) 4 Good External Rotation 4 Good Internal Rotation 5 Normal Comments MMT limited more by pain than true weakness Left Flexion 5 Normal Abduction (C5) 5 Normal External Rotation 5 Normal Internal Rotation 5 Normal PT-OP-Q Treatments Start: 05/25/19 15:34 Freq: Status: Active Protocol: Document 06/11/19 08:11 SP (Rec: 06/11/19 08:17 SP [email or web address]) Therapeutic Exercises Supine Exercises pec stretch Equipment Used noodle Reps/Minutes 3 min Comments let scapula settle inferiorly Sidelying Exercises TS rotation Side bilateral Resistance AROM Reps/Minutes 10 Comments cued TS rotation and scapular glide Standing Exercises shld er Side right Equipment Used level 1 band Reps/Minutes 2x10 Comments cued scap depression to neutral lat pull down Side right Equipment Used level 1 band Reps/Minutes 2x10 Comments cued scapular depression to neutral Pect stretch doorway Comments Progressive pect stretch doorway PT-OP-T Assessment and Plan Start: 05/25/19 15:34 Freq: Status: Active Protocol: Document 06/11/19 08:11 SP (Rec: 06/11/19 08:17 SP [email or web address]) Physical Therapy Assessment Assessment Summary Assessment Tx focused on scapular depression and scapular/TS mobility. Cued for lower trap activation with mirror for self feedback at gym and outside person comments. Physical Therapy Plan Frequency and Duration Frequency of Treatment 2x/Week Duration of Treatment 2 months Plan of Care Start Date 05/25/19 Plan of Care End Date 07/25/19 Therapeutic Interventions Therapeutic Interventions Home Exercise Program,Joint Mobilizations,Manual Therapy, Patient/Caregiver Education, Self-Care/Home Management,Soft Tissue Mobilization, Therapeutic Exercises Next Visit Focus/Plan Next Note Type Treatment Note Next Visit Plan Consider work on thoracic spine, cervical spine (traps, middle scalene, rotators) and progress PNF, thoracic mobility. Check and work on right first rib mobility.
--- NOTE | 2019-06-25 08:15 | PT.OTN ---
Current Diagnoses Stiffness of right shoulder, not elsewhere classified (06/25/19) Incomplete rotator cuff tear or rupture of right shoulder, not specified as traumatic (06/25/19) Weakness (06/25/19) Physical Therapy Treatment Note PT-OP-A Visit Information Start: 05/25/19 15:34 Freq: Status: Active Protocol: Document 06/25/19 07:36 SP (Rec: 06/25/19 08:18 SP [id number]) Out-Patient Physical Therapy Visit Information Visit Information Visit Type Treatment Note Visit Start Time 07:36 Visit Stop Time 08:15 Total Visit Minutes 39 Visit Number 03/05 Number of EPIC INTERFACE ANALYST Visits 3 PT-OP-B Current Condition Start: 05/25/19 15:34 Freq: Status: Active Protocol: Document 05/25/19 11:15 DCW (Rec: 05/25/19 16:19 DCW [id number]) Current Condition History of Current Condition Onset Date s/p 2-3 months Current Complaints Right shoulder pain and decreased ROM History of Current Condition Pt is a 74 year old male presenting with a 2-3 month history of right shoulder pain . Pt cannot remember any specific injury, it just started burning one day. Pt notes that initially, he just ignored it, but it kept worsening and worsening, until he finally changed his shoulder exercise routine one month ago. Pt reports since cutting out dumbbell presses and lateral dumbbell lifts, his pain has decreased, but it is still there. Pt reports that he does continue to perform some overhead lifting activities that are part of his routine. Pt has a history of bilateral shoulder replacements, with the right a standard TSA and the left a reverse TSA, as well as prior rotator cuff tear on the left. Pt reports that he works part -time at [employer] in [place], which he notes is very physical, and his shoulder pain has not stopped him from performing his job, but it does get uncomfortable . PT-OP-C Subjective Start: 05/25/19 15:34 Freq: Status: Active Protocol: Document 06/25/19 07:36 SP (Rec: 06/25/19 08:18 SP [id number]) OP-PT Subjective Patient Comments Patient Comments Pt reported no concerns or changes, has been busy more so didnt' get as much done as would have liked but feels range is getting better. Is compliant with HEP. 0-1/10 stiffness more than pain R shld. Patient Reported Progress Improving PT-OP-E Functional Tests Start: 05/25/19 15:34 Freq: Status: Active Protocol: Document 05/25/19 11:15 DCW (Rec: 05/25/19 16:19 DCW [id number]) Functional Tests Apley's Scratch Test Action 2- Left C7 Action 2- Right C7 Action 3- Left T6 Action 3- Right T9 PT-OP-K Range of Motion Start: 05/25/19 15:34 Freq: Status: Active Protocol: Document 05/25/19 11:15 DCW (Rec: 05/25/19 16:19 DCW [id number]) Shoulder Goniometric Range of Motion Shoulder Right Active Flexion 170 Abduction 150 Left Active Testing Position Sitting Flexion 170 Abduction 150 Shoulder ROM Limitations Comments Limitations at 150? bilaterally in abduction pt reports are not new, the ongoing ROM loss has been present since his TSA. PT-OP-L Special Tests Start: 05/25/19 15:34 Freq: Status: Active Protocol: Document 05/25/19 11:15 DCW (Rec: 05/25/19 16:19 DCW [id number]) Special Tests Shoulder Special Tests Yergason's Biceps Test Results Negative Speed's Biceps Test Results Negative Black Anthony Impingement Test Results Positive R Painful Arc Test Results Negative Drop Arm Rotator Cuff Test Results Negative Lift-Off Rotator Cuff Test Results Negative Empty Can Test Results Negative Belly Press Test Results Negative Apprehension Test Test Results Negative PT-OP-M Strength Start: 05/25/19 15:34 Freq: Status: Active Protocol: Document 05/25/19 11:15 DCW (Rec: 05/25/19 16:19 DCW [id number]) Shoulder Strength Shoulder Manual Muscle Testing Right Flexion 5 Normal Abduction (C5) 4 Good External Rotation 4 Good Internal Rotation 5 Normal Comments MMT limited more by pain than true weakness Left Flexion 5 Normal Abduction (C5) 5 Normal External Rotation 5 Normal Internal Rotation 5 Normal PT-OP-Q Treatments Start: 05/25/19 15:34 Freq: Status: Active Protocol: Document 06/25/19 07:36 SP (Rec: 06/25/19 08:18 SP [id number]) Therapeutic Exercises Supine Exercises pec stretch Equipment Used foam roller Reps/Minutes 3 min Comments let scapula settle inferiorly Standing Exercises Serratus press Standing Exercise Name ABCs Side bilateral Resistance AROM Equipment Used [place] ball Reps/Minutes 3x10 Comments cue scap depression, to decrease shld elevation compensation shld D1 ext Side bilateral Resistance Tb level 2 Reps/Minutes 3x10 Comments cue scap depression during concentric/eccentric Shld IR Side right Resistance TB level 2 Reps/Minutes 3x10 Comments cue scap depression shld er Side right Equipment Used Level 2 TB Reps/Minutes 3x10 Comments cued level shld, scap depression and approx 45* to decrease Shld elev compe PT-OP-T Assessment and Plan Start: 05/25/19 15:34 Freq: Status: Active Protocol: Document 06/25/19 07:36 SP (Rec: 06/25/19 08:18 SP [id number]) Physical Therapy Assessment Assessment Summary Assessment Tx focused on scapular depression stabilization. cued for lower trap activation. Tolerated increased level 2 TB and add PNF D1 ext and serratus exercises with no adverse affects. Physical Therapy Plan Frequency and Duration Frequency of Treatment 2x/Week Duration of Treatment 2 months Plan of Care Start Date 05/25/19 Plan of Care End Date 07/25/19 Therapeutic Interventions Therapeutic Interventions Home Exercise Program,Joint Mobilizations,Manual Therapy, Patient/Caregiver Education, Self-Care/Home Management,Soft Tissue Mobilization, Therapeutic Exercises Next Visit Focus/Plan Next Note Type Treatment Note Next Visit Plan Review HEP, added serratus press abc, D1 ext and consider add resistance TB. and neck stretches
--- NOTE | 2019-06-29 08:15 | PT.OTN ---
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 Pt cannot remember any specific injury, it just started burning one day. Pt notes that initially, he just ignored it, but it kept worsening and worsening, until he finally changed his shoulder exercise routine one month ago. Pt reports since cutting out dumbbell presses and lateral dumbbell lifts, his pain has decreased, but it is still there. Pt reports that he does continue to perform some overhead lifting activities that are part of his routine. Pt has a history of bilateral shoulder replacements, with the right a standard TSA and the left a reverse TSA, as well as prior rotator cuff tear on the left. 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 PT-OP-C Subjective Start: 05/25/19 15:34 Freq: Status: Active Protocol: Document 06/29/19 08:15 SP (Rec: 06/29/19 08:30 SP [id number]) OP-PT Subjective Patient Comments Patient Comments Pt reported tweeked his R shld at work yesterday lifting something at work but no pain pre PT. Compliant with HEP and no concerns since last tx. Patient Reported Progress Improving PT-OP-E Functional Tests Start: 05/25/19 15:34 Freq: Status: Active Protocol: Document 05/25/19 11:15 DCW (Rec: 05/25/19 16:19 DCW [id number]) Functional Tests Apley's Scratch Test Action 2- Left C7 Action 2- Right C7 Action 3- Left T6 Action 3- Right T9 PT-OP-K Range of Motion Start: 05/25/19 15:34 Freq: Status: Active Protocol: Document 05/25/19 11:15 DCW (Rec: 05/25/19 16:19 DCW [id number]) Shoulder Goniometric Range of Motion Shoulder Right Active Flexion 170 Abduction 150 Left Active Testing Position Sitting Flexion 170 Abduction 150 Shoulder ROM Limitations Comments Limitations at 150? bilaterally in abduction pt reports are not new, the ongoing ROM loss has been present since his TSA. PT-OP-L Special Tests Start: 05/25/19 15:34 Freq: Status: Active Protocol: Document 05/25/19 11:15 DCW (Rec: 05/25/19 16:19 DCW [id number]) Special Tests Shoulder Special Tests Yergason's Biceps Test Results Negative Speed's Biceps Test Results Negative Black Anthony Impingement Test Results Positive R Painful Arc Test Results Negative Drop Arm Rotator Cuff Test Results Negative Lift-Off Rotator Cuff Test Results Negative Empty Can Test Results Negative Belly Press Test Results Negative Apprehension Test Test Results Negative PT-OP-M Strength Start: 05/25/19 15:34 Freq: Status: Active Protocol: Document 05/25/19 11:15 DCW (Rec: 05/25/19 16:19 DCW [id number]) Shoulder Strength Shoulder Manual Muscle Testing Right Flexion 5 Normal Abduction (C5) 4 Good External Rotation 4 Good Internal Rotation 5 Normal Comments MMT limited more by pain than true weakness Left Flexion 5 Normal Abduction (C5) 5 Normal External Rotation 5 Normal Internal Rotation 5 Normal PT-OP-Q Treatments Start: 05/25/19 15:34 Freq: Status: Active Protocol: Document 06/29/19 08:15 SP (Rec: 06/29/19 08:30 SP [id number]) Cardio Equipment Upper Body Ergometer (UBE) Duration (Minutes) 8 RPM 80 Other 4/4 min f/b Gym Equipment Sport Cord squat row Exercise Details squat row Cord/Resistance 1-2 plates Reps/Duration 2x10 Comments cued scap retract/depression, knees behind toes Therapeutic Exercises Supine Exercises PROM Supine Exercise Name FF, ABD, ER Side right Reps/Minutes x5 each direction pec stretch Equipment Used foam roller Reps/Minutes 3 min Comments let scapula settle inferiorly Standing Exercises FF wall slide Standing Exercise Name shld FF wall slide Side right Resistance AROM Reps/Minutes 2x10 Comments scap depression shld D1 ext Side bilateral Resistance Tb level 2 Reps/Minutes 3x10 Comments cue scap depression during concentric/eccentric lat pull down Side right Equipment Used level 2 band Reps/Minutes 2x10 Comments cued scapular depression to neutral Pect stretch doorway Side right Reps/Minutes 30 x3 Comments Progressive pect stretch doorway Manual Therapy Treatment Soft Tissue Mobilization 1 Body Location R pec, lat, subscap Mobilization Type Cross-Friction,Strumming, Sustained Pressure Intensity/Depth Moderate Body Position Supine Joint Mobilizations 1 Joint GH Jt inferior, posterior glide Grade III Body Position Supine Reps/Duration x10 PT-OP-T Assessment and Plan Start: 05/25/19 15:34 Freq: Status: Active Protocol: Document 06/29/19 08:15 SP (Rec: 06/29/19 08:30 SP [id number]) Physical Therapy Assessment Goals Two Impairment Pt's right shoulder pain increases while at work Halfway Goal (LTG) Pt to perform a full work day at [employer] [facility] [employer] with no increased pain 75% of his work days over a two week period LTG Duration 07/25/19 One Impairment Pt's overhead lifting program currently causes increased symptoms Short Term Goal (STG) Pt to correct current weightlifting routine in order to limit aggravation and irritation of supraspinatus tendon STG Duration 06/25/19 Assessment Summary Assessment Tx focused on lifting form with added squat row cable for gym cued proper form knees behind toes and scap stab with decreased shld elevation. Tight R pec and trap. Improved ROM FF end of PT. Pt stated I feel looser in R shld ne ck . Add pec ball roll a doorframe/wall. Physical Therapy Plan Frequency and Duration Frequency of Treatment 2x/Week Duration of Treatment 2 months Plan of Care Start Date 05/25/19 Plan of Care End Date 07/25/19 Therapeutic Interventions Therapeutic Interventions Home Exercise Program,Joint Mobilizations,Manual Therapy, Patient/Caregiver Education, Self-Care/Home Management,Soft Tissue Mobilization, Therapeutic Exercises Next Visit Focus/Plan Next Note Type Treatment Note Next Visit Plan Review HEP: added today assess response Squat row to support lifting at work, next PRogress AROM, resistance d1 ext and serratus press, neck stretches, manual for tightness, TS and 1st rib, trap, scalenes, rotators.
--- NOTE | 2019-07-02 08:13 | PT.OTN ---
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 Pt cannot remember any specific injury, it just started burning one day. Pt notes that initially, he just ignored it, but it kept worsening and worsening, until he finally changed his shoulder exercise routine one month ago. Pt reports since cutting out dumbbell presses and lateral dumbbell lifts, his pain has decreased, but it is still there. Pt reports that he does continue to perform some overhead lifting activities that are part of his routine. Pt has a history of bilateral shoulder replacements, with the right a standard TSA and the left a reverse TSA, as well as prior rotator cuff tear on the left. 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 PT-OP-C Subjective Start: 05/25/19 15:34 Freq: Status: Active Protocol: Document 07/02/19 07:32 MB (Rec: 07/02/19 08:13 MB [id number]) OP-PT Subjective Patient Comments Patient Comments Pt states that he is doing pretty good. He hasn't been able to do his exercises as much as he wants. He works out everyday and is working at the [employer] 2x/wk. He stays active. Patient Reported Progress Improving PT-OP-E Functional Tests Start: 05/25/19 15:34 Freq: Status: Active Protocol: Document 05/25/19 11:15 DCW (Rec: 05/25/19 16:19 DCW [id number]) Functional Tests Apley's Scratch Test Action 2- Left C7 Action 2- Right C7 Action 3- Left T6 Action 3- Right T9 PT-OP-K Range of Motion Start: 05/25/19 15:34 Freq: Status: Active Protocol: Document 05/25/19 11:15 DCW (Rec: 05/25/19 16:19 DCW [id number]) Shoulder Goniometric Range of Motion Shoulder Right Active Flexion 170 Abduction 150 Left Active Testing Position Sitting Flexion 170 Abduction 150 Shoulder ROM Limitations Comments Limitations at 150? bilaterally in abduction pt reports are not new, the ongoing ROM loss has been present since his TSA. PT-OP-L Special Tests Start: 05/25/19 15:34 Freq: Status: Active Protocol: Document 05/25/19 11:15 DCW (Rec: 05/25/19 16:19 DCW [id number]) Special Tests Shoulder Special Tests Yergason's Biceps Test Results Negative Speed's Biceps Test Results Negative Black Anthony Impingement Test Results Positive R Painful Arc Test Results Negative Drop Arm Rotator Cuff Test Results Negative Lift-Off Rotator Cuff Test Results Negative Empty Can Test Results Negative Belly Press Test Results Negative Apprehension Test Test Results Negative PT-OP-M Strength Start: 05/25/19 15:34 Freq: Status: Active Protocol: Document 05/25/19 11:15 DCW (Rec: 05/25/19 16:19 DCW [id number]) Shoulder Strength Shoulder Manual Muscle Testing Right Flexion 5 Normal Abduction (C5) 4 Good External Rotation 4 Good Internal Rotation 5 Normal Comments MMT limited more by pain than true weakness Left Flexion 5 Normal Abduction (C5) 5 Normal External Rotation 5 Normal Internal Rotation 5 Normal PT-OP-Q Treatments Start: 05/25/19 15:34 Freq: Status: Active Protocol: Document 07/02/19 07:32 MB (Rec: 07/02/19 08:13 MB [id number]) Therapeutic Exercises Supine Exercises Posterior capsule stretch Comments Posterior capsule stretch performed in supine Standing Exercises Racquet ball massage Comments Racquet ball massage infra, intrascapular, upper traps, d/ c deltoid Manual Therapy Treatment Other Other Manual Treatments Prone rib and thoracic PA mobs , grade III-IV, scapular mobs. Right sidelying: AAROM right shoulder abduction, MWM lats and infraspinatus, PT holding trigger point and pt performing AROM; scapular retraction and shoulder ER with elbow bent with resistance from PT to promote strength PT-OP-T Assessment and Plan Start: 05/25/19 15:34 Freq: Status: Active Protocol: Document 07/02/19 07:32 MB (Rec: 07/02/19 08:13 MB [id number]) Physical Therapy Assessment Goals Two Impairment Pt's right shoulder pain increases while at work Halfway Goal (LTG) Pt to perform a full work day at [facility] with no increased pain 75% of his work days over a two week period LTG Duration 07/25/19 One Impairment Pt's overhead lifting program currently causes increased symptoms Short Term Goal (STG) Pt to correct current weightlifting routine in order to limit aggravation and irritation of supraspinatus tendon STG Duration 06/25/19 Assessment Summary Assessment Reviewed some HEP exercises and manual work this date to improve right shoulder ROM. He presents with right infraspinatus and latissimus tension, benefits from manual work. Pt states that he is feeling like he has improved enough to d/c after his current visits (15). Physical Therapy Plan Frequency and Duration Frequency of Treatment 2x/Week Duration of Treatment 2 months Plan of Care Start Date 05/25/19 Plan of Care End Date 07/25/19 Therapeutic Interventions Therapeutic Interventions Home Exercise Program,Joint Mobilizations,Manual Therapy, Patient/Caregiver Education, Self-Care/Home Management,Soft Tissue Mobilization, Therapeutic Exercises Next Visit Focus/Plan Next Note Type Treatment Note Next Visit Plan Review HEP: added today assess response Squat row to support lifting at work, next PRogress AROM, resistance d1 ext and serratus press, neck stretches, manual for tightness, TS and 1st rib, trap, scalenes, rotators.
--- NOTE | 2019-07-06 08:15 | PT.OTN ---
Current Diagnoses Stiffness of right shoulder, not elsewhere classified (07/06/19) Incomplete rotator cuff tear or rupture of right shoulder, not specified as traumatic (07/06/19) Weakness (07/06/19) Physical Therapy Treatment Note PT-OP-A Visit Information Start: 05/25/19 15:34 Freq: Status: Active Protocol: Document 07/06/19 07:33 SP (Rec: 07/06/19 08:18 SP [id number]) Out-Patient Physical Therapy Visit Information Visit Information Visit Type Treatment Note Visit Start Time 07:33 Visit Stop Time 08:15 Total Visit Minutes 42 Visit Number 06/05 Number of SACK SORTER Visits 1 PT-OP-B Current Condition Start: 05/25/19 15:34 Freq: Status: Active Protocol: Document 05/25/19 11:15 DCW (Rec: 05/25/19 16:19 DCW [id number]) Current Condition History of Current Condition Onset Date s/p 2-3 months Current Complaints Right shoulder pain and decreased ROM History of Current Condition Pt is a 74 year old male presenting with a 2-3 month history of right shoulder pain . Pt cannot remember any specific injury, it just started burning one day. Pt notes that initially, he just ignored it, but it kept worsening and worsening, until he finally changed his shoulder exercise routine one month ago. Pt reports since cutting out dumbbell presses and lateral dumbbell lifts, his pain has decreased, but it is still there. Pt reports that he does continue to perform some overhead lifting activities that are part of his routine. Pt has a history of bilateral shoulder replacements, with the right a standard TSA and the left a reverse TSA, as well as prior rotator cuff tear on the left. 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 Did well after last tx. Want to focus on decrease tightness today in neck R shld . Patient Reported Progress Improving PT-OP-E Functional Tests Start: 05/25/19 15:34 Freq: Status: Active Protocol: Document 05/25/19 11:15 DCW (Rec: 05/25/19 16:19 DCW [id number]) Functional Tests Apley's Scratch Test Action 2- Left C7 Action 2- Right C7 Action 3- Left T6 Action 3- Right T9 PT-OP-K Range of Motion Start: 05/25/19 15:34 Freq: Status: Active Protocol: Document 05/25/19 11:15 DCW (Rec: 05/25/19 16:19 DCW [id number]) Shoulder Goniometric Range of Motion Shoulder Right Active Flexion 170 Abduction 150 Left Active Testing Position Sitting Flexion 170 Abduction 150 Shoulder ROM Limitations Comments Limitations at 150? bilaterally in abduction pt reports are not new, the ongoing ROM loss has been present since his TSA. PT-OP-L Special Tests Start: 05/25/19 15:34 Freq: Status: Active Protocol: Document 05/25/19 11:15 DCW (Rec: 05/25/19 16:19 DCW [id number]) Special Tests Shoulder Special Tests Yergason's Biceps Test Results Negative Speed's Biceps Test Results Negative Black Anthony Impingement Test Results Positive R Painful Arc Test Results Negative Drop Arm Rotator Cuff Test Results Negative Lift-Off Rotator Cuff Test Results Negative Empty Can Test Results Negative Belly Press Test Results Negative Apprehension Test Test Results Negative PT-OP-M Strength Start: 05/25/19 15:34 Freq: Status: Active Protocol: Document 05/25/19 11:15 DCW (Rec: 05/25/19 16:19 DCW [id number]) Shoulder Strength Shoulder Manual Muscle Testing Right Flexion 5 Normal Abduction (C5) 4 Good External Rotation 4 Good Internal Rotation 5 Normal Comments MMT limited more by pain than true weakness Left Flexion 5 Normal Abduction (C5) 5 Normal External Rotation 5 Normal Internal Rotation 5 Normal PT-OP-Q Treatments Start: 05/25/19 15:34 Freq: Status: Active Protocol: Document 07/06/19 07:33 SP (Rec: 07/06/19 08:18 SP [id number]) Therapeutic Exercises Supine Exercises HABD foam roller Side bilateral Equipment Used foam roller Reps/Minutes AROM x10, TB #1 2x10 PROM Supine Exercise Name FF, ABD, ER Side right Reps/Minutes x5 each direction pec stretch Equipment Used foam roller Reps/Minutes 2 min Comments let scapula settle inferiorly Prone Exercises scap retract shld ext Prone Exercise Name HABD/ext Side right Resistance AROM Reps/Minutes 5 sec hold x5 2 sets Comments R arm side of table lift posterior Standing Exercises lat pull down Side right Equipment Used level 2 band Reps/Minutes 2x10 Comments cued scapular depression to neutral Racquet ball massage Comments Racquet ball massage pec, upper traps, Manual Therapy Treatment Soft Tissue Mobilization 1 Body Location R pec, lat, subscap, UT, Lev scap Mobilization Type Cross-Friction,Strumming, Sustained Pressure Intensity/Depth Moderate Body Position Supine Joint Mobilizations 1 Joint GH Jt inferior, posterior glide Grade III Body Position Supine Reps/Duration x10 PT-OP-T Assessment and Plan Start: 05/25/19 15:34 Freq: Status: Active Protocol: Document 07/06/19 07:33 SP (Rec: 07/06/19 08:18 SP [id number]) Physical Therapy Assessment Goals Two Impairment Pt's right shoulder pain increases while at work [employer] Goal (LTG) Pt to perform a full work day at [facility] with no increased pain 75% of his work days over a two week period LTG Duration 07/25/19 One Impairment Pt's overhead lifting program currently causes increased symptoms Short Term Goal (STG) Pt to correct current weightlifting routine in order to limit aggravation and irritation of supraspinatus tendon STG Duration 06/25/19 Assessment Summary Assessment Tx focused on scap retraction/ depression and manual to open up anterior shld and decrease protracted/elevated tightness . Pt tolerated and responded well to tx today. Little sore over pec area but helped relax shld/neck better. Physical Therapy Plan Frequency and Duration Frequency of Treatment 2x/Week Duration of Treatment 2 months Plan of Care Start Date 05/25/19 Plan of Care End Date 07/25/19 Therapeutic Interventions Therapeutic Interventions Home Exercise Program,Joint Mobilizations,Manual Therapy, Patient/Caregiver Education, Self-Care/Home Management,Soft Tissue Mobilization, Therapeutic Exercises Next Visit Focus/Plan Next Visit Plan Review added supine foam roller pec stretch and HABD AROM and resistance. Squat row to support lifting at work, next PRogress AROM, resistance d1 ext and serratus press, neck stretches, manual for tightness, TS and 1st rib, trap, scalenes, rotators. [ End ]
--- NOTE | 2019-07-09 08:08 | PT.OTN ---
Current Diagnoses Stiffness of right shoulder, not elsewhere classified (07/09/19) Incomplete rotator cuff tear or rupture of right shoulder, not specified as traumatic (07/09/19) Weakness (07/09/19) Physical Therapy Treatment Note PT-OP-A Visit Information Start: 05/25/19 15:34 Freq: Status: Active Protocol: Document 07/09/19 07:30 MB (Rec: 07/09/19 08:08 MB [id number]) Out-Patient Physical Therapy Visit Information Visit Information Visit Type Treatment Note Visit Start Time 07:30 Visit Stop Time 08:10 Total Visit Minutes 40 Visit Number 07/06 Number of GUITAR PLAYER Visits 1 PT-OP-B Current Condition Start: 05/25/19 15:34 Freq: Status: Active Protocol: Document 05/25/19 11:15 DCW (Rec: 05/25/19 16:19 DCW [id number]) Current Condition History of Current Condition Onset Date s/p 2-3 months Current Complaints Right shoulder pain and decreased ROM History of Current Condition Pt is a 74 year old male presenting with a 2-3 month history of right shoulder pain . Pt cannot remember any specific injury, it just started burning one day. Pt notes that initially, he just ignored it, but it kept worsening and worsening, until he finally changed his shoulder exercise routine one month ago. Pt reports since cutting out dumbbell presses and lateral dumbbell lifts, his pain has decreased, but it is still there. Pt reports that he does continue to perform some overhead lifting activities that are part of his routine. Pt has a history of bilateral shoulder replacements, with the right a standard TSA and the left a reverse TSA, as well as prior rotator cuff tear on the left. 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 PT-OP-C Subjective Start: 05/25/19 15:34 Freq: Status: Active Protocol: Document 07/09/19 07:30 MB (Rec: 07/09/19 08:08 MB [id number]) OP-PT Subjective Patient Comments Patient Comments Pt reports that he feels at least 75% better since starting therapy. This includes working at [employer] . He put in extra work hours this week and only felt normal aches and pains after work. He has initiated overhead lifting with work-outs and experiences tweaking. He understands the importance of con't scapular retraction and shoulder rotator strengthening . He feels he is ready to d/c PT. PT-OP-E Functional Tests Start: 05/25/19 15:34 Freq: Status: Active Protocol: Document 05/25/19 11:15 DCW (Rec: 05/25/19 16:19 DCW [id number]) Functional Tests Apley's Scratch Test Action 2- Left C7 Action 2- Right C7 Action 3- Left T6 Action 3- Right T9 PT-OP-K Range of Motion Start: 05/25/19 15:34 Freq: Status: Active Protocol: Document 05/25/19 11:15 DCW (Rec: 05/25/19 16:19 DCW [id number]) Shoulder Goniometric Range of Motion Shoulder Right Active Flexion 170 Abduction 150 Left Active Testing Position Sitting Flexion 170 Abduction 150 Shoulder ROM Limitations Comments Limitations at 150? bilaterally in abduction pt reports are not new, the ongoing ROM loss has been present since his TSA. PT-OP-L Special Tests Start: 05/25/19 15:34 Freq: Status: Active Protocol: Document 05/25/19 11:15 DCW (Rec: 05/25/19 16:19 DCW [id number]) Special Tests Shoulder Special Tests Connorrgason's Biceps Test Results Negative Speed's Biceps Test Results Negative Black Anthony Impingement Test Results Positive R Painful Arc Test Results Negative Drop Arm Rotator Cuff Test Results Negative Lift-Off Rotator Cuff Test Results Negative Empty Can Test Results Negative Belly Press Test Results Negative Apprehension Test Test Results Negative PT-OP-M Strength Start: 05/25/19 15:34 Freq: Status: Active Protocol: Document 05/25/19 11:15 DCW (Rec: 05/25/19 16:19 DCW [id number]) Shoulder Strength Shoulder Manual Muscle Testing Right Flexion 5 Normal Abduction (C5) 4 Good External Rotation 4 Good Internal Rotation 5 Normal Comments MMT limited more by pain than true weakness Left Flexion 5 Normal Abduction (C5) 5 Normal External Rotation 5 Normal Internal Rotation 5 Normal PT-OP-Q Treatments Start: 05/25/19 15:34 Freq: Status: Active Protocol: Document 07/09/19 07:30 MB (Rec: 07/09/19 08:08 MB [id number]) Gym Equipment Cable Column (Body Solid) Row with squat on cable column Reps/Time Pt performing at gym Therapeutic Exercises Supine Exercises Posterior capsule stretch Comments Performed over foam roller Standing Exercises Racquet ball lats Comments Racquet ball lats, cross- friction STM on Right Other Exercises Reviewed HEP Comments Reviewed the following HEP exercises this d/c date: foam roller pect, PNF Manual Therapy Treatment Other Other Manual Treatments MWM right paraspinals with PT providing passive shoulder abduction and trigger point pressure on paraspinal, lats. Left side lying, grade III rib mobs PT-OP-T Assessment and Plan Start: 05/25/19 15:34 Freq: Status: Active Protocol: Document 07/09/19 07:30 MB (Rec: 07/09/19 08:08 MB [id number]) Physical Therapy Plan Discharge Physical Therapy Discharge Reasons Goals Met Discharge Comments Pt has met his PT goals of 75% improvement in pain at work and adding in overhead strengthening exercises while con't scapular and shoulder rotator exercises and stretching. His right shoulder ER and IR have improved to 5/ 5 with MMT. Pt and PT agree to d/c PT at this time and pt to con't HEP.
== END 2019-09-13 13:23 ==
LOC: PHYS 07:30
PROVIDERS: PCP Internal Medicine; Visit Provider Physician Assistant
DX: M75.111 Incomplete rotator cuff tear or rupture of right shoulder, not specified as traumatic (principal); M25.611 Stiffness of right shoulder, not elsewhere classified; R53.1 Weakness
CPT/HCPCS: 97110; 97140; 97161; 97535

== ENCOUNTER → 2019-10-12 09:57 | Outpatient (CLI) | payer OTHER, SELFPAY ==
--- NOTE | 2019-10-12 10:00 | DI.RAD.S_ITS ---
PROCEDURE: XR KNEE RT 3V INDICATIONS: Progressive right knee pain TECHNIQUE: 3 views of the knee were acquired. COMPARISON: [facility], MR, KNEE WITHOUT CONTRAST, 02/06/2016, 8:38. FINDINGS: Bones: No fractures or dislocations are noted there is severe degenerative change at the patellofemoral joint and the patella is subluxed inferiorly from expected anatomic position. Several calcific potential loose bodies are seen just above the patella and within the suprapatellar bursal space area.. No suspicious bony lesions. Soft tissues: No joint effusion. No suspicious soft tissue calcifications. IMPRESSION: Please correlate with prior history regarding apparent quadriceps tendon rupture and the inferior subluxation of the patella as a result. Arthritic change at the medial compartment is moderate, degenerative change at the patellofemoral joint is severe best seen laterally. Dictated by: Graham Beavers M.D. on 10/12/2019 at 10:51 Approved by: Graham Beavers M.D. on 10/12/2019 at 10:53
== END ==
PROVIDERS: PCP Family Medicine; Referring Provider Family Medicine; Visit Provider Family Medicine
DX: M25.561 Pain in right knee (principal); M23.41 Loose body in knee, right knee
CPT/HCPCS: 73562

== ENCOUNTER → 2020-01-07 07:37 | Outpatient (CLI) | payer OTHER, SELFPAY ==
--- NOTE | 2020-01-07 | DI.NM.S_ITS ---
PROCEDURE: NM ERMELINDA PERF SPECT REST & STR Rest and exercise myocardial perfusion SPECT with gated imaging and ejection fraction RADIOPHARMACEUTICAL: 10.0 mCi Tc-99m sestamibi IV at rest and 25.4 mCi Tc-99m sestamibi IV at peak exercise. A two day-protocol was performed. INDICATIONS: Essential (primary) hypertension, known prior CAD treated with stent TECHNIQUE: Radiopharmaceutical was injected at peak stress test, and also at rest. SPECT images were obtained. SPECT myocardial perfusion images were displayed in short axis, horizontal long axis, and vertical long axis views. Gated images were reviewed using [email or web address] software. COMPARISON: None. CARDIAC STRESS: A standard Liborio treadmill exercise tolerance test was performed by the patient under the supervision of an attending staff. The patient exercised for 9 minutes and 0 seconds; functional aerobic impairment (GABBY) is -36%. Hemodynamic data: There is normal blood pressure and heart rate response to exercise stress. Patient achieved 79% of maximum predicted heart rate at peak exercise. Symptoms: Patient denied chest pain during exercise. EKG: There were mild horizontal to downsloping ST depressions in the inferior and anterolateral leads. Frequent PVCs at peak exercise and during recovery. FINDINGS: Raw data: There is good myocardial labeling by radiotracer. No significant motion artifacts. Lbod-tr-ddnrk ratio is 0.37 (normal is less than 0.38 for sestamibi tracer, and less than 0.50 for thallium tracer). Left ventricle function: Gated images demonstrate akinesis of the distal septum and severe hypokinesis of the distal anterior wall extending to the apex. No transient ischemic dilation; TID is 1.12 (normal less than 1.3). The left ventricle resting end-diastolic volume is 178 mL. Left ventricle stress ejection fraction is 47%. Myocardial perfusion: There is severe fixed apical defect consistent with prior infarction. There is a moderately intense fixed defect in distal anterior wall and the distal septum, also consistent with prior infarction. No ischemia. SSS 21. IMPRESSION: Abnormal nuclear stress test consistent with prior infarction. No ischemia. 1) Severe fixed apical defect consistent with prior infarction. There is a moderately intense fixed defect in distal anterior wall and the distal septum, also consistent with prior infarction. No ischemia. SSS 21. 2) Enlarged left ventricle with mildly reduced systolic function (EF post stress is 47%). There is akinesis of the distal septum and severe hypokinesis of the distal anterior wall extending to the apex. 3) ECG suggestive of ischemic heart disease. Mild horizontal to downsloping ST depressions in the inferior and anterolateral leads. Frequent PVCs at peak exercise and during recovery. 4) No angina during the study. 5) Good exercise tolerance (10.1 METs, GABBY -36%). Submaximal study as only 79% of maximum predicted heart rate achieved but this is expected as the patient is on metoprolol that wasn't held for the stress test. 6) No prior nuclear stress test availabble for comparison. Dictated by: Sade Escobedo MD on 01/08/2020 at 14:52 Approved by: Sade Escobedo MD on 01/08/2020 at 14:59
--- NOTE | 2020-01-07 11:49 | PM.TREADMILL ---
Cardiac Stress Test Report Referral & Results Date Patient Seen: 01/07/20 Time Patient Seen: 11:49 Requesting provider: John Nair Indication: hypertension Rest ECG: Sinus Bradycardia Procedure Note: Standard Liborio protocol, 9:00, 9.7 METS Very Good exercise capacity, GABBY-36% Normal hemodynamic response to exercise No chest pain or anginal symptoms Less than [address] depression in II, III, aVF, V4-V6 Frequent PVCs, couplets and bigeminy; asymptomatic Impression: Submaximal exercise stress test, failed to achieve target heart rate due to beta patrick therapy. Nuclear images pening Please note: Actual ECG tracings can be found in the PACS system.
== END ==
PROVIDERS: PCP Family Medicine; Referring Provider Nurse Practitioner; Visit Provider Nurse Practitioner
DX: R94.39 Abnormal result of other cardiovascular function study (principal); R06.00 Dyspnea, unspecified; I25.5 Ischemic cardiomyopathy; I25.10 Atherosclerotic heart disease of native coronary artery without angina pectoris; I10 Essential (primary) hypertension; Z95.5 Presence of coronary angioplasty implant and graft
CPT/HCPCS: 78452; 93017; A9502

== ENCOUNTER → 2020-05-16 09:40 | Outpatient (CLI) | payer OTHER, SELFPAY ==
[2020-05-16 10:31] LABS: Add Manual Diff / Slide Review NO; Basophils Absolute Auto 0 /uL (0-100); Basophils Percent Auto 0.8 % (0-2); Eosinophils Absolute Auto 200 /uL (0-450); Eosinophils Percent Auto 4.7 % (2-4); Hematocrit 42.7 % (41-53); Hemoglobin 14.5 g/dL (13.5-17.5); Lymphocytes Absolute Auto 1100 /uL (1100-4500); Lymphocytes Percent Auto 24.8 % (25-40); Mean Corpuscular Hemoglobin 30.9 PG (26-34); Mean Corpuscular Volume 90.8 fL (80-100); Monocytes Absolute Auto 400 /uL (0-900); Monocytes Percent Auto 9.5 % (3-14); Neutrophils Absolute Auto 2800 /uL (1500-7000); Neutrophils Percent Auto 60.2 % (50-75); Platelet Count 135 X10^3/uL (150-400); Red Cell Distribution Width 13.3 % (11.6-14.8); White Blood Cell Count 4.6 X10^3/uL (4.5-11.0)
[2020-05-16 10:39] LABS: Hemoglobin A1C% w Est Avg Glu 5.9 % (4.0-6.0)
[2020-05-16 10:52] LABS: HEMOLYSIS < 15 (0-50)
[2020-05-16 10:58] LABS: Alanine Aminotransferase 20 IU/L (<50); Albumin Globulin Ratio 1.5 (1.0-2.8); Alkaline Phosphatase 50 U/L (38-126); Aspartate Aminotransferase 28 IU/L (17-59); BUN Creatinine Ratio 32.1 (6-22); Bilirubin Total 0.6 mg/dL (0.2-1.3); Blood Urea Nitrogen 25 mg/dL (9-20); Calcium 9.2 mg/dL (8.4-10.2); Carbon Dioxide 27 mmol/L (22-32); Chloride 105 mmol/L (98-107); Cholesterol 111 mg/dL (140-199); Estimated Glomerular Filt Rate > 60.0 mL/min (>60); Globulin 2.7 g/dL (1.7-4.1); Glucose 93 mg/dL (80-110); HDL Cholesterol 55 mg/dL (40-60); LDL Cholesterol Calculated 48 mg/dL (<100); Potassium 4.8 mmol/L (3.4-5.1); Sodium 138 mmol/L (137-145); Total Protein 6.7 g/dL (6.3-8.2); Triglycerides 42 mg/dL (35-150)
== END ==
PROVIDERS: PCP Family Medicine; Referring Provider Family Medicine; Visit Provider Family Medicine
DX: I25.10 Atherosclerotic heart disease of native coronary artery without angina pectoris (principal); Z12.5 Encounter for screening for malignant neoplasm of prostate
CPT/HCPCS: 36415; 80053; 80061; 83036; 84153; 85025

== ENCOUNTER → 2020-11-03 08:40 | Outpatient (CLI) | payer OTHER, SELFPAY ==
--- NOTE | 2020-11-03 08:41 | DI.RAD.S_ITS ---
PROCEDURE: XR HIP W PEL IF DONE LT 2V INDICATIONS: Left hip pain TECHNIQUE: AP pelvis with lateral view(s) of the left hip(s). COMPARISON: None. FINDINGS: Bones: No acute fracture. Lumbar spondylosis and facet arthropathy. Moderate bilateral hip joint degeneration. Degenerative sclerosis and spurring present at the pubis symphysis. Soft tissues: The visualized bowel gas pattern is normal. No suspicious soft tissue calcifications. IMPRESSION: Moderate bilateral hip joint degeneration although left slightly greater than right. Lumbar spondylosis and facet disease. Dictated by: Modesto Crump M.D. on 11/03/2020 at 9:26 Approved by: Modesto Crump M.D. on 11/03/2020 at 9:38
[2020-11-03 10:08] LABS: Alanine Aminotransferase 21 IU/L (<50); Albumin 4.1 g/dL (3.5-5.0); Albumin Globulin Ratio 1.5 (1.0-2.8); Alkaline Phosphatase 48 U/L (38-126); Aspartate Aminotransferase 28 IU/L (17-59); BUN Creatinine Ratio 22.5 (6-22); Bilirubin Total 0.4 mg/dL (0.2-1.3); Blood Urea Nitrogen 20 mg/dL (9-20); Calcium 9.1 mg/dL (8.4-10.2); Carbon Dioxide 23 mmol/L (22-32); Chloride 106 mmol/L (98-107); Estimated Glomerular Filt Rate > 60.0 mL/min (>60); Globulin 2.7 g/dL (1.7-4.1); Glucose 91 mg/dL (80-110); HEMOLYSIS < 15 (0-50); Potassium 4.1 mmol/L (3.4-5.1); Sodium 135 mmol/L (137-145); Total Protein 6.8 g/dL (6.3-8.2)
== END ==
PROVIDERS: PCP Family Medicine; Referring Provider Family Medicine; Visit Provider Family Medicine
DX: M25.552 Pain in left hip (principal); E78.5 Hyperlipidemia, unspecified; I10 Essential (primary) hypertension
CPT/HCPCS: 36415; 73502; 80053

== ENCOUNTER → 2021-11-19 10:51 | Outpatient (CLI) | payer OTHER, SELFPAY ==
--- NOTE | 2021-11-19 11:06 | DI.RAD.S_ITS ---
PROCEDURE: XR SHOULDER RT MIN 2V INDICATIONS: Evaluate and treat TECHNIQUE: 3 views of the shoulder were acquired. COMPARISON: None. FINDINGS: Bones: Postoperative changes of right shoulder replacement. There are degenerative changes of the acromioclavicular joint. No fractures or dislocations. No suspicious bony lesions. Visualized ribs appear intact. Soft tissues: No suspicious soft tissue calcifications. IMPRESSION: Postoperative changes of right shoulder replacement without complication. Dictated by: Reji Knowles M.D. on 11/19/2021 at 11:49 Approved by: Reji Knowles M.D. on 11/19/2021 at 11:50
--- NOTE | 2021-11-19 11:06 | DI.RAD.S_ITS ---
PROCEDURE: XR SHOULDER LT MIN 2V INDICATIONS: Evaluate and treat TECHNIQUE: 3 views of the shoulder were acquired. COMPARISON: None. FINDINGS: Bones: Postoperative changes of total left shoulder replacement. No perihardware lucency. The acromioclavicular joint has degenerative changes. Soft tissues: No suspicious soft tissue calcifications. IMPRESSION: Postoperative changes of total left shoulder replacement without complication. Dictated by: Reji Knowles M.D. on 11/19/2021 at 11:44 Approved by: Reji Knowles M.D. on 11/19/2021 at 11:49
[2021-11-19 11:31] LABS: Add Manual Diff / Slide Review NO; Basophils Absolute Auto 0 /uL (0-100); Basophils Percent Auto 0.8 % (0-2); Eosinophils Absolute Auto 100 /uL (0-450); Eosinophils Percent Auto 2.4 % (2-4); Hematocrit 43.8 % (41-53); Lymphocytes Absolute Auto 1300 /uL (1100-4500); Lymphocytes Percent Auto 22.1 % (25-40); Mean Corpuscular HGB Conc 34.3 % (30-36); Mean Corpuscular Hemoglobin 30.7 PG (26-34); Mean Corpuscular Volume 89.5 fL (80-100); Monocytes Absolute Auto 400 /uL (0-900); Monocytes Percent Auto 7.3 % (3-14); Neutrophils Absolute Auto 3900 /uL (1500-7000); Neutrophils Percent Auto 67.4 % (50-75); Platelet Count 134 X10^3/uL (150-400); Red Blood Cell Count 4.89 X10^6/uL (4.5-5.9); Red Cell Distribution Width 13.8 % (11.6-14.8); White Blood Cell Count 5.8 X10^3/uL (4.5-11.0)
[2021-11-19 12:57] LABS: Alanine Aminotransferase 27 IU/L (<50); Albumin 4.5 g/dL (3.5-5.0); Albumin Globulin Ratio 1.8 (1.0-2.8); Alkaline Phosphatase 46 U/L (38-126); Aspartate Aminotransferase 33 IU/L (17-59); BUN Creatinine Ratio 27.9 (6-22); Bilirubin Total 0.7 mg/dL (0.2-1.3); Blood Urea Nitrogen 24 mg/dL (9-20); Calcium 9.4 mg/dL (8.4-10.2); Carbon Dioxide 23 mmol/L (22-32); Chloride 107 mmol/L (98-107); Cholesterol 112 mg/dL (140-199); Estimated Glomerular Filt Rate > 60.0 mL/min (>60); Globulin 2.5 g/dL (1.7-4.1); Glucose 94 mg/dL (80-110); HDL Cholesterol 56 mg/dL (40-60); HEMOLYSIS < 15 (0-50); LDL Cholesterol Calculated 47 mg/dL (<100); Potassium 4.8 mmol/L (3.4-5.1); Sodium 137 mmol/L (137-145); Triglycerides 45 mg/dL (35-150)
[2021-11-19 13:24] LABS: TSH w/ Reflex to FT4 1.56 uIU/mL (0.47-4.68)
[2021-11-19 13:25] LABS: Prostate Specific Antigen Scrn 2.18 ng/mL (0.1-4.0)
[2021-11-19 13:44] LABS: Vitamin B12 513 pg/mL (239-931)
[2021-11-22 12:11] LABS: Cholesterol, Total 111 mg/dL (100-199); HDL-Cholesterol 61 mg/dL (>39); HDL-Particle (Total) 37.6 umol/L (>=30.5); LDL Particle 550 nmol/L (<1000); LDL-Cholsterol 38 mg/dL (0-99); LP-IR Score 26 (<=45); Small LDL- Particle 318 nmol/L (<=527); Triglycerides 48 mg/dL (0-149)
== END ==
PROVIDERS: PCP Family Medicine; Referring Provider Nurse Practitioner; Visit Provider Nurse Practitioner
DX: E78.00 Pure hypercholesterolemia, unspecified (principal); Z12.5 Encounter for screening for malignant neoplasm of prostate; I10 Essential (primary) hypertension; E78.5 Hyperlipidemia, unspecified; I25.10 Atherosclerotic heart disease of native coronary artery without angina pectoris; J30.2 Other seasonal allergic rhinitis; R29.91 Unspecified symptoms and signs involving the musculoskeletal system; Z98.890 Other specified postprocedural states
CPT/HCPCS: 36415; 73030; 80053; 80061; 82607; 83704; 84443; 85025; G0103

== ENCOUNTER → 2022-08-25 10:31 | Outpatient (CLI) | payer OTHER, SELFPAY ==
[2022-08-25 13:09] LABS: COVID-19 CEPHEID 4-PLEX PCR Negative (Negative); Influenza A - CEPHEID Flu A NEGATIVE (NEGATIVE); Influenza B - CEPHEID Flu B NEGATIVE (NEGATIVE); Respiratory Syncytial Virus Negative (Negative)
== END ==
PROVIDERS: PCP Family Medicine; Visit Provider Physician Assistant Medical
DX: R09.81 Nasal congestion (principal); R05.1 Acute cough
CPT/HCPCS: 0241U

== ENCOUNTER → 2022-09-07 09:04 | Outpatient (CLI) | payer OTHER, SELFPAY ==
[2022-09-07 10:24] LABS: Alanine Aminotransferase 28 IU/L (<50); Alkaline Phosphatase 56 U/L (38-126); Aspartate Aminotransferase 29 IU/L (17-59); BUN Creatinine Ratio 25.8 (6-22); Bilirubin Total 0.6 mg/dL (0.2-1.3); Blood Urea Nitrogen 23 mg/dL (9-20); Calcium 9.3 mg/dL (8.4-10.2); Carbon Dioxide 22 mmol/L (22-32); Chloride 104 mmol/L (98-107); Estimated Glomerular Filt Rate > 60 mL/min (>60); Glucose 94 mg/dL (80-110); HEMOLYSIS < 15 (0-50); Potassium 4.2 mmol/L (3.4-5.1); Sodium 137 mmol/L (137-145); Total Protein 7.3 g/dL (6.3-8.2)
[2022-09-09 12:17] LABS: Cholesterol, Total 123 mg/dL (100-199); HDL-Cholesterol 60 mg/dL (>39); HDL-Particle (Total) 37.4 umol/L (>=30.5); LDL Particle 689 nmol/L (<1000); LDL Size 20.8 nm (>20.5); LDL-Cholsterol 51 mg/dL (0-99); LP-IR Score 31 (<=45); Small LDL- Particle 403 nmol/L (<=527); Triglycerides 55 mg/dL (0-149)
[2022-09-10 16:22] LABS: Albumin 4.2 g/dL (3.5-5.0); Albumin Globulin Ratio 1.4 (1.0-2.8); Globulin 3.1 g/dL (1.7-4.1)
== END ==
PROVIDERS: PCP Family Medicine; Referring Provider Nurse Practitioner; Visit Provider Nurse Practitioner
DX: E78.00 Pure hypercholesterolemia, unspecified (principal); I10 Essential (primary) hypertension
CPT/HCPCS: 36415; 80053; 80061; 83704

== ENCOUNTER → 2022-10-07 10:54 | Outpatient (CLI) | payer OTHER, SELFPAY ==
--- NOTE | 2022-10-07 10:56 | DI.RAD.S_ITS ---
PROCEDURE: XR KNEE RT 3V INDICATIONS: pain, hx of issues TECHNIQUE: 3 views of the knee were acquired. COMPARISON: [facility], CR, XR KNEE RT 3V, 10/12/2019, 9:54. FINDINGS: Bones: No fractures or dislocations. Mild joint space narrowing at the medial compartment. There is tricompartmental osteophytosis. No suspicious bony lesions. Soft tissues: Small joint effusion. No suspicious soft tissue calcifications. Small heterotopic calcifications in the suprapatellar region are unchanged. Arterial vascular calcifications. IMPRESSION: Small joint effusion. Moderate DJD most pronounced at the patellofemoral and medial compartments. Dictated by: Pierce Sanders M.D. on 10/07/2022 at 15:00 Approved by: Pierce Sanders M.D. on 10/07/2022 at 15:02
== END ==
PROVIDERS: PCP Family Medicine; Referring Provider Nurse Practitioner Family; Visit Provider Nurse Practitioner Family
DX: M17.11 Unilateral primary osteoarthritis, right knee (principal); M25.561 Pain in right knee; M25.461 Effusion, right knee
CPT/HCPCS: 73562

== ENCOUNTER → 2022-12-21 16:51 | Outpatient (CLI) | payer OTHER, SELFPAY ==
--- NOTE | 2022-12-21 16:52 | DI.US.S_ITS ---
PROCEDURE: US EXTREMELY NONVASC UPPER RT INDICATIONS: RIGHT SHOULDER PAIN AND LUMP TECHNIQUE: Real-time scanning was performed of the right shoulder, with image documentation. COMPARISON: Previous radiographic evaluation not available for review due to technical issues. FINDINGS: At the patient directed palpable area of concern over the lateral aspect of the right shoulder, there is a heterogeneous, hypoechoic vascular mass with internal punctate calcifications noted in the anterior, superior aspect of the right shoulder measuring 3.7 x 3.8 x 1.8 cm. There is a lobulated appearance. IMPRESSION: Heterogeneous, lobulated hypoechoic vascular mass with internal punctate calcifications over the anterior, superior right shoulder measuring up to 3.8 cm in size. Recommend further characterization with updated right shoulder radiographic series as well as contrast enhanced MRI (versus CT as the report from prior radiograph described presence of right shoulder arthroplasty which may limit visualization of this region depending on its proximity to the mass). Dictated by: Shola Sosa M.D. on 12/22/2022 at 18:16 Approved by: Shola Sosa M.D. on 12/22/2022 at 18:23
== END ==
PROVIDERS: PCP Family Medicine; Referring Provider Surgery; Visit Provider Surgery
DX: M25.511 Pain in right shoulder (principal); R22.31 Localized swelling, mass and lump, right upper limb
CPT/HCPCS: 76882

== ENCOUNTER → 2023-09-13 13:00 | Outpatient (CLI) | payer OTHER, SELFPAY ==
[2023-09-13 14:19] LABS: Add Manual Diff / Slide Review NO; Basophils Absolute Auto 0 /uL (0-100); Basophils Percent Auto 0.5 % (0-2); Eosinophils Absolute Auto 100 /uL (0-450); Eosinophils Percent Auto 1.9 % (2-4); Hematocrit 42.9 % (41-53); Hemoglobin 14.5 g/dL (13.5-17.5); Lymphocytes Absolute Auto 1600 /uL (1100-4500); Lymphocytes Percent Auto 22.7 % (25-40); Mean Corpuscular HGB Conc 33.7 % (30-36); Mean Corpuscular Hemoglobin 30.6 PG (26-34); Mean Corpuscular Volume 90.6 fL (80-100); Monocytes Absolute Auto 500 /uL (0-900); Monocytes Percent Auto 6.5 % (3-14); Neutrophils Absolute Auto 5000 /uL (1500-7000); Neutrophils Percent Auto 68.4 % (50-75); Platelet Count 130 X10^3/uL (150-400); Red Blood Cell Count 4.73 X10^6/uL (4.5-5.9); Red Cell Distribution Width 13.7 % (11.6-14.8); White Blood Cell Count 7.3 X10^3/uL (4.5-11.0)
[2023-09-13 14:52] LABS: Alanine Aminotransferase 25 IU/L (<50); Albumin 4.2 g/dL (3.5-5.0); Albumin Globulin Ratio 1.6 (1.0-2.8); Alkaline Phosphatase 48 U/L (38-126); Aspartate Aminotransferase 30 IU/L (17-59); BUN Creatinine Ratio 38.2 (6-22); Bilirubin Total 0.5 mg/dL (0.2-1.3); Blood Urea Nitrogen 29 mg/dL (9-20); Calcium 9.7 mg/dL (8.4-10.2); Carbon Dioxide 24 mmol/L (22-32); Chloride 104 mmol/L (98-107); Cholesterol 102 mg/dL (140-199); Estimated Glomerular Filt Rate > 60 mL/min (>60); Globulin 2.7 g/dL (1.7-4.1); Glucose 85 mg/dL (80-110); HDL Cholesterol 49 mg/dL (40-60); HEMOLYSIS < 15 (0-50); LDL Cholesterol Calculated 38 mg/dL (<100); Potassium 4.7 mmol/L (3.4-5.1); Sodium 137 mmol/L (137-145); Total Protein 6.9 g/dL (6.3-8.2); Triglycerides 74 mg/dL (35-150)
== END ==
PROVIDERS: PCP Family Medicine; Referring Provider Family Medicine; Visit Provider Family Medicine
DX: I21.9 Acute myocardial infarction, unspecified (principal); E78.5 Hyperlipidemia, unspecified; I10 Essential (primary) hypertension
CPT/HCPCS: 36415; 80053; 80061; 85025

== ENCOUNTER → 2024-01-17 11:56 | Outpatient (CLI) | payer OTHER, SELFPAY ==
--- NOTE | 2024-01-17 11:57 | DI.RAD.S_ITS ---
PROCEDURE: XR CHEST 2V INDICATIONS: Cough, rhonchi TECHNIQUE: 2 views of the chest were acquired. COMPARISON: None. FINDINGS: Surgical changes and devices: Bilateral shoulder arthroplasties. Lungs and pleura: Lungs are clear. No pleural effusions or pneumothorax. Mediastinum: Mediastinal contours are normal. Heart size is normal. Bones and chest wall: No suspicious bony abnormalities. Soft tissues appear unremarkable. IMPRESSION: No acute cardiopulmonary abnormality is seen. Dictated by: Flower Lemus MD, PhD on 01/17/2024 at 12:17 Approved by: Flower Lemus MD, PhD on 01/17/2024 at 12:18
== END ==
PROVIDERS: PCP Family Medicine; Referring Provider Physician Assistant Surgical; Visit Provider Physician Assistant Surgical
DX: R05.9 Cough, unspecified (principal)
CPT/HCPCS: 71046

== ENCOUNTER → 2024-03-05 11:58 | Outpatient (CLI) | payer OTHER, SELFPAY ==
[2024-03-05 14:36] LABS: Alanine Aminotransferase 28 IU/L (<50); Albumin 3.9 g/dL (3.5-5.0); Albumin Globulin Ratio 1.5 (1.0-2.8); Alkaline Phosphatase 47 U/L (38-126); Aspartate Aminotransferase 30 IU/L (17-59); BUN Creatinine Ratio 41.1 (6-22); Bilirubin Total 0.5 mg/dL (0.2-1.3); Blood Urea Nitrogen 30 mg/dL (9-20); Calcium 8.6 mg/dL (8.4-10.2); Carbon Dioxide 20 mmol/L (22-32); Chloride 111 mmol/L (98-107); Estimated Glomerular Filt Rate > 60 mL/min (>60); Globulin 2.6 g/dL (1.7-4.1); Glucose 90 mg/dL (80-110); HEMOLYSIS < 15 (0-50); Potassium 4.7 mmol/L (3.4-5.1); Sodium 138 mmol/L (137-145); Total Protein 6.5 g/dL (6.3-8.2)
== END ==
PROVIDERS: PCP Family Medicine; Referring Provider Nurse Practitioner; Visit Provider Nurse Practitioner
DX: I10 Essential (primary) hypertension (principal)
CPT/HCPCS: 36415; 80053

== ENCOUNTER → 2024-04-27 14:24 | Outpatient (CLI) | payer OTHER, SELFPAY ==
--- NOTE | 2024-04-27 14:25 | DI.RAD.S_ITS ---
PROCEDURE: XR SHOULDER RT MIN 2V INDICATIONS: rt shoulder pain TECHNIQUE: 3 views of the shoulder were acquired. COMPARISON: [facility], CR, XR SHOULDER LT MIN 2V, 11/19/2021, 10:57. FINDINGS: Bones: No fractures or dislocations. No suspicious bony lesions. Visualized ribs appear intact. Right shoulder arthroplasty. Distal clavicle resection. Soft tissues: No suspicious soft tissue calcifications. IMPRESSION: Right shoulder arthroplasty without hardware complication. Dictated by: Francesco Rodriguez M.D. on 04/29/2024 at 8:55 Approved by: Francesco Rodriguez M.D. on 04/29/2024 at 8:55
== END ==
PROVIDERS: PCP Family Medicine; Referring Provider Nurse Practitioner Family; Visit Provider Nurse Practitioner Family
DX: S49.91XA Unspecified injury of right shoulder and upper arm, initial encounter (principal); Z96.611 Presence of right artificial shoulder joint
CPT/HCPCS: 73030

== ENCOUNTER → 2024-06-08 15:04 | Outpatient (CLI) | payer OTHER, SELFPAY ==
[2024-06-08 18:20] LABS: Prostate Specific Antigen 2.44 ng/mL (0.10-4.00)
== END ==
PROVIDERS: PCP Family Medicine; Referring Provider Urology; Visit Provider Urology
DX: N40.0 Benign prostatic hyperplasia without lower urinary tract symptoms (principal)
CPT/HCPCS: 36415; 84153

== ENCOUNTER → 2024-09-03 14:09 | Outpatient (CLI) | payer OTHER, SELFPAY | PROVIDERS: PCP Family Medicine; Visit Provider Urology | DX: N40.1 Benign prostatic hyperplasia with lower urinary tract symptoms (principal); Z01.818 Encounter for other preprocedural examination | CPT/HCPCS: 87086; 99214 ==

== ENCOUNTER 2024-09-10 10:23 | Day surgery (SDC) | payer OTHER, SELFPAY ==
[2024-09-04 14:28] VITALS: BMI 27.3
[2024-09-10] VITALS (12 sets, daily range): BP systolic 110–129; BP diastolic 51–84; PULSE 47–61; RESP 10–16; TEMP 36.2–36.8; O2SAT 96–100; BMI 28.3
--- NOTE | 2024-09-10 | PATH_ITS ---
[facility] Accession Number: [id number] No. of containers..01 Tissue . 01 Material submitted: . prostate - PROSTATE CHIPS . 01 Diagnosis: PROSTATE CHIPS, TRANSURETHRAL PROSTATE TISSUE RESECTION: Benign prostatic parenchyma, 8 grams, with glandular/stromal nodular hyperplasia and mild chronic inflammation. Negative for atypia or invasive carcinoma. Unremarkable overlying urothelial mucosa. MRV 09/12/2024 1541 Local . 01 Electronically signed: . Tiffanie Macias MD, Pathologist NPI- [id number] . 01 Gross description: . Received in formalin with two patient identifiers and prostate chips, and consists of a 4.0 x 3.0 x 1.5 cm, 8 gram aggregate of peralta-brown, focally cauterized, rubbery morecellated soft tissue admixed with clotted blood. The specimen is entirely submitted in cassettes A1-A3. ([id number]) /MRV 09/11/2024 1928 Local . 01 Pathologist provided ICD-10: N40.1 . 01 CPT . 404530 Performed at: [address] [facility] [address], [place], [place] [id number] MD Ladarius Bey MD Phone: [phone]
--- NOTE | 2024-09-10 11:28 | PM.PREOP ---
Pre-operative Note COVID-19 COVID-19 status: Not tested Interval Note History & Physical reviewed/Exam performed by Physician: Yes Changes to H&P: No
[2024-09-10] MEDS: CEFAZOLIN 2 GM/100 ML PREMIX 100 ML IV (11:50)
--- NOTE | 2024-09-10 12:13 | SUR.OPER ---
Lithotomy on padded OR bed, head on pillow, arms secured on padded arm boards at <90 degrees abduction. Legs secured in padded yellow fins stirrups.
--- NOTE | 2024-09-10 13:30 | PM.OP.1 ---
Procedure & Clinicians Procedure: Cystoscopy Aquablation Same procedure as scheduled: Yes Indications: 79 y/o M w/ symptoms consistent w/ BPH and LUTS who has seen very minimal improvement on Tamsulosin 0.4mg daily and is strongly desiring surgical intervention via an Aquablation procedure. Surgeon: Damon Mcleod Click Yes if Unassisted: Yes Anesthesia Type: General Operative Notes Findings: Coaptating lateral prostatic lobes, no intravesical median lobe Closure Type: not applicable Specimen(s): other (prostate chips) Applied: catheter Estimated Blood Loss (mL): 20 Blood products transfused: none Procedure in detail: After informed consent was obtained, the patient was identified brought to the operating room where he was placed in his supine position on the table.? Once there anesthesia was induced and maintained.? Ensuring an adequate level of anesthesia the patient was transitioned to the lithotomy position where after time-out he was prepped.? After prepping, ensuring an adequate level of anesthesia, administration IV antibiotics and time-out 60 cc of ultrasound gel was instilled within the rectum and the ultrasound probe which had been attached to the TRUS stepper which was attached to the TRUS stepper articulating arm which was secured to the bed was advanced into the rectum under direct vision via the ultrasound.? The ultrasound probe was then aligned and confirmation made that the prostate was centered and aligned in both the sagittal and transverse views.? The bladder neck, verumontanum, central and transitional zones were identified.? With the ultrasound in place and adjusted the patient was then draped in a sterile fashion. With the patient draped the 24 Czech aqua beam handpiece was then inserted through the urethra and advanced into the bladder.? Cystoscopy was then performed and no concerning bladder mass or lesions were noted.? Bilateral ureteral orifices were noted to be orthotopic in nature.? As the cystoscope was advanced the level of the sphincter, verumontanum, bladder neck were all identified via ultrasound and under direct vision.? The aqua beam hand place was then secured to the handpiece articulating arm which had been secured to the bed.? The Aquablation handpiece and TRUS probe were confirmed to be parallel and colinear.? Confirmation was then made that the aqua beam handpiece and nozzle was centered and anterior to the bladder neck. ?The cystoscope was then retracted under direct vision in the sphincter and verumontanum were identified.? The tip of the cystoscope was then placed proximal to the external sphincter.? Compression was applied with the TRUS probe to the prostate.? The alignment of the TRUS probe and aqua beam handpiece was once again confirmed.? Horizontal alignment of the handpiece water jet was then performed.? With these adjustments made, the treatment zones were then planned using real-time ultrasound.? In the largest transverse view of the prostate the depth and radial angles were determined and set again in the transverse view of the prostate.? In the longitudinal and sagittal view the Aquablation nozzle was identified and its position registered with the software and robot.? The treatment contours were then determined and adjusted to reflect the intended margins of resection.? Following our plan confirmation, the Aquablation resection treatment was started.? A 2nd pass was then completed in similar fashion after the 1st pass had been completed.? At this point, the Aqua hand piece was removed from the urethra. The 26Fr resectoscope was then inserted into the urethra and cystoscopy was repeated.? The [employer] medical reimbursement manager was utilized to evacuate the blood clots from the bladder.? The bladder neck was then resected using the bipolar Gyrus loop.? Bilateral ureteral orifices were again identified and noted to be intact at case end.? Hemostasis was obtained and noted to be excellent at case end.? The resectoscope was then removed and a 22Fr Sherine 3-way hematuria catheter was inserted through the urethra and into the bladder.? 45cc of sterile water was utilized for balloon insufflation.? Efflux was noted to be clear at case end.? Anesthesia was reversed, he was extubated in the OR and transferred to the PACU in stable condition for recovery. Complications: none Post-operative Condition: stable Disposition: PACU Plan for aftercare: Will continue to run CBI for a few hours to evaluate the efflux from his catheter.? Should it remain relatively clear and with minimal blood clots, will discharge home with catheter in place and have him return to Urology clinic in 2 days for a voiding trial.? Should his efflux remain red or have significant clot burden, will admit overnight for observation and continued CBI.
[2024-09-10] MEDS: ACETAMINOPHEN 325 MG TABLET 975 MG PO (14:05)
[2024-09-10] MEDS: PHENAZOPYRIDINE 100 MG TABLET 200 MG PO (14:14)
== END 2024-09-10 17:00 | disposition home or self-care (01) ==
PROVIDERS: PCP Family Medicine; Referring Provider Urology; Visit Provider Urology
PROC: 0VT08ZZ Resection of Prostate, Via Natural or Artificial Opening Endoscopic (ICD-10-PCS; CPT 52597; principal; 2024-09-10 11:45)
DX: N40.1 Benign prostatic hyperplasia with lower urinary tract symptoms (principal); R39.12 Poor urinary stream; R33.9 Retention of urine, unspecified; R35.1 Nocturia; R39.198 Other difficulties with micturition; N41.1 Chronic prostatitis; R35.0 Frequency of micturition; I25.10 Atherosclerotic heart disease of native coronary artery without angina pectoris; I25.2 Old myocardial infarction; I10 Essential (primary) hypertension; G47.33 Obstructive sleep apnea (adult) (pediatric); Z87.891 Personal history of nicotine dependence; Z95.5 Presence of coronary angioplasty implant and graft; Z79.82 Long term (current) use of aspirin
CPT/HCPCS: 0421T; C2596; J0690; J1100; J2405; J2704; J3010

== ENCOUNTER → 2024-09-12 14:59 | Outpatient (CLI) | payer OTHER, SELFPAY | PROVIDERS: PCP Family Medicine; Visit Provider Urology | DX: N40.1 Benign prostatic hyperplasia with lower urinary tract symptoms (principal) | CPT/HCPCS: 51798; 87086; 99213 ==

== ENCOUNTER → 2024-09-26 08:06 | Outpatient (CLI) | payer OTHER, SELFPAY ==
[2024-09-26 09:22] LABS: Alanine Aminotransferase 30 IU/L (<50); Albumin 4.3 g/dL (3.5-5.0); Albumin Globulin Ratio 1.7 (1.0-2.8); Alkaline Phosphatase 48 U/L (38-126); Aspartate Aminotransferase 32 IU/L (17-59); BUN Creatinine Ratio 22.2 (6-22); Bilirubin Total 0.6 mg/dL (0.2-1.3); Blood Urea Nitrogen 20 mg/dL (9-20); Calcium 9.3 mg/dL (8.4-10.2); Carbon Dioxide 22 mmol/L (22-32); Chloride 105 mmol/L (98-107); Cholesterol 106 mg/dL (140-199); Estimated Glomerular Filt Rate > 60 mL/min (>60); Globulin 2.5 g/dL (1.7-4.1); Glucose 104 mg/dL (80-110); HDL Cholesterol 53 mg/dL (40-60); HEMOLYSIS < 15 (0-50); LDL Cholesterol Calculated 42 mg/dL (<100); Potassium 4.4 mmol/L (3.4-5.1); Sodium 135 mmol/L (137-145); Total Protein 6.8 g/dL (6.3-8.2); Triglycerides 56 mg/dL (35-150)
== END ==
PROVIDERS: PCP Family Medicine; Referring Provider Internal Medicine Cardiovascular Disease; Visit Provider Internal Medicine Cardiovascular Disease
DX: I10 Essential (primary) hypertension (principal)
CPT/HCPCS: 36415; 80053; 80061

== ENCOUNTER → 2024-10-15 08:03 | Outpatient (CLI) | payer OTHER, SELFPAY ==
--- NOTE | 2024-10-15 08:04 | DI.ECHO.S_ITS ---
[facility] : : [address] : : [place] : : [id number] : : Phone: [phone] Echocardiogram Report + + :Name: SHER CORTEZ Study Date: 10/15/2024 Height: 69 in : :Hospital ReadingLocation: Weight: 186 lb : : Gender: Male BSA: 2.0 m2 : :: 1945 Age: 79 yrs BP: 135/76 mmHg: :Reason For Study: MITRAL VALVE REGURGITATION : :Ordering Physician: MARYJO, : :MAREK Performed By: Danny Martinez : :Referring: MAREK SIBLEY : + + Interpretation Summary The left ventricle is normal in size. The ejection fraction is estimated to be 45-50%. In some of the apical views, there appears to be severe hypokinesis to akinesis of distal septum, extending into the distal inferior wall, predominantly inferior apex and distal anterior wall. The right ventricle is mildly dilated. The right ventricular systolic function is normal. There is mild mitral regurgitation. Procedure: A two-dimensional transthoracic echocardiogram with color flow and Doppler was performed. The study quality was technically good. There is no prior echocardiogram noted for this patient. The patient was in sinus bradycardia with heart rates between 54-58 bpm during the exam. Left Ventricle: The left ventricle is normal in size. There is normal left ventricular wall thickness. There is no thrombus. The ejection fraction is estimated to be 45-50%. In some of the apical views, there appears to be severe hypokinesis to akinesis of distal septum, extending into the distal inferior wall, predominantly inferior apex and distal anterior wall. Diastolic parameters suggest a relaxation abnormality of the left ventricle, consistent with probable normal filling pressures. Right Ventricle: The right ventricle is mildly dilated. The right ventricular systolic function is normal. Atria: The left atrium is mildly dilated. Right atrial size is normal. There is no Doppler evidence for an atrial septal defect. Mitral Valve: The mitral valve leaflets appear normal. There is no evidence of stenosis, fluttering, or prolapse. There is mild mitral regurgitation. Aortic Valve: The aortic valve is trileaflet. The aortic valve opens well. There is no aortic valve stenosis. No aortic regurgitation is present. Tricuspid Valve: The tricuspid valve leaflets are thin and pliable. The tricuspid valve is normal. There is trace tricuspid regurgitation. Pulmonary artery pressures cannot be estimated because of the lack of a measurable TR jet velocity. Pulmonic Valve: The pulmonic valve leaflets are thin and pliable; valve motion is normal. There is trace pulmonic regurgitation. Great Vessels: The aortic root is normal size. The dimensions of the ascending aorta are normal. The pulmonary artery is normal size. The inferior vena cava was not visualized. Pericardium/ Pleura There is no pericardial effusion. There is no pleural effusion. MMode/2D Measurements & Calculations LVIDd: 5.1 cm LVOT diam: 2.2 cm LVIDs: 3.8 cm Ao root diam: 3.3 cm FS: 25.7 % asc Aorta Diam: 3.6 cm EPSS: 1.3 cm IVSd: 0.61 cm LVPWd: 0.81 cm LV espinoza. diameter/BSA (cm/m^2): 2.5 LV sys. diameter/BSA (cm/m^2): 1.9 LA A2 area: 25.5 cm2 RA long axis: 5.3 cm LA A4 area: 25.9 cm2 RA area: 15.3 cm2 LA length (vol): 7.3 cm RA vol: 37.4 ml LA vol: 76.5 ml RA : 18.7 ml/m2 LA vol index: 38.2 ml/m2 IVC diam: 2.0 cm RVD1 (basal): 4.2 cm TAPSE: 2.7 cm Doppler Measurements & Calculations Ao V2 max: 164.7 cm/sec LVOT Max Cory: 107.5 cm/sec Ao V2 mean: 120.5 cm/sec LV V1 max P.6 mmHg Ao max P.9 mmHg LV V1 VTI: 27.8 cm Ao mean P.4 mmHg MELA(I,D): 2.6 cm2 Ao V2 VTI: 40.8 cm MELA(V,D): 2.5 cm2 sev ratio: 0.68 MELA indexed to BSA (cm^2/m^2): 1.3 MV E max cory: 82.9 cm/sec TR max cory: 12.8 cm/sec MV A max cory: 133.8 cm/sec TR max P.07 mmHg MV E/A: 0.62 PA V2 max: 81.6 cm/sec Med Peak E' Cory: 5.1 cm/sec PA V2 mean: 61.1 cm/sec E/E' med: 16.1 PA mean P.6 mmHg Lat Peak E' Cory: 5.4 cm/sec PA pr(Accel): 27.6 mmHg E/E' lat: 15.5 E/e' average: 15.8 MV dec time: 0.28 sec SV(LVOT): 104.7 ml Reading Physician:04:22 PM
--- NOTE | 2024-10-15 18:27 | DI.NM.S_ITS ---
DATE OF SERVICE: 10/15/2024 NUCLEAR CARDIOLOGY MYOCARDIAL PERFUSION STUDY PROCEDURE PERFORMED: Exercise treadmill stress and rest myocardial perfusion imaging study with gating to assess ejection fraction and regional wall motion. ORDERING PROVIDER: Baudilio Bran MD INDICATIONS: The patient is a 79-year-old male with a history of previous anterior wall infarction and ischemic cardiomyopathy. CARDIAC STRESS: The patient was able to exercise for 9 minutes 23 seconds on a standard Liborio protocol suggesting excellent exercise capacity with an GABBY of -60%, achieving 10.1 METS. He had a normal heart rate and blood pressure response to exercise, achieving a maximum heart rate of 135 BPM (95% of his predicted maximum). He had no chest discomfort or other anginal symptoms. His resting ECG shows sinus rhythm with low precordial voltage but normal ST segments. With stress, he developed occasional PVCs, at times in a bigeminal pattern and rarely in couplets but no other complex ectopy. He develops 1-[address] depression in the lateral leads but this resolves within 1 minute of recovery and thus is nonspecific for ischemia. At 8 minutes 20 seconds of exercise at a heart rate of 128 BPM, 25.7 millicuries of technetium-99m Myoview was injected and he was imaged 15 minutes later using a gated SPECT acquisition protocol. Earlier in the day while at rest, he had been injected with 12.9 millicuries of technetium- 99m Myoview and was imaged 15 minutes later, again using a gated SPECT acquisition protocol. FINDINGS: 1. Raw data: There is fairly good myocardial tracer uptake. The lung/heart ratio is normal at 0.28 with a normal TID ratio of 1.05. 2. Quantitated gated SPECT: Post-stress ejection fraction is 48% with severe hypokinesis to akinesis of the distal anterior wall, anterior septum and apex. The resting ejection fraction is 49% with an identical contraction pattern. Resting end-diastolic volume is moderately increased at 158 mL. 3. Myocardial perfusion imaging: Post-stress supine images show a severe perfusion defect in the mid and distal septum, extending into the anterior wall, apex, and periapical segments. This defect persists on the prone images. The resting images show an identical perfusion pattern without any improvement in the perfusion defect. IMPRESSION: 1. Abnormal myocardial perfusion study. 2. Moderate-sized, severe fixed perfusion defect involving the distal half of the anterior septum, extending into the anterior wall, apex, and periapical segments, consistent with previous transmural infarction but without any reversibility to suggest ischemia. 3. Mildly reduced left ventricular systolic function with an anteroapical wall motion abnormality and moderately increased left ventricular volumes. 4. Excellent exercise capacity without angina and only transient ST- segment deviations that are nonspecific for ischemia. He had occasional PVCs, at times in a bigeminal pattern and rarely in couplets, but no other complex ventricular ectopy. 5. Compared to his previous myocardial perfusion study of 01/07/2020, perfusion imaging appears identical and his previous ejection fraction was also unchanged. His previous end-diastolic volume was 178 mL suggesting the absence of any significant change from the previous study. Kennedy Javed - KELLY/dora/DARSHAN doc#: [id number]/job#: [id number] dd: 10/15/2024 17:10:00 dt: 10/15/2024 18:04:00 DICTATING MD/COPIES TO: Drake Ayala MD; Baudilio Bran MD COPIES MNE: DEMAR;
== END ==
PROVIDERS: PCP Family Medicine; Referring Provider Internal Medicine Cardiovascular Disease; Visit Provider Internal Medicine Cardiovascular Disease
DX: I25.5 Ischemic cardiomyopathy (principal); I34.0 Nonrheumatic mitral (valve) insufficiency; Z95.5 Presence of coronary angioplasty implant and graft
CPT/HCPCS: 78452; 93017; 93306; A9502

== ENCOUNTER → 2024-10-17 10:09 | Outpatient (CLI) | payer OTHER, SELFPAY | PROVIDERS: PCP Family Medicine; Visit Provider Urology | DX: N40.1 Benign prostatic hyperplasia with lower urinary tract symptoms (principal) | CPT/HCPCS: 87086 ==

== ENCOUNTER → 2025-04-02 11:30 | Outpatient (CLI) | payer OTHER, SELFPAY ==
[2025-04-02 14:29] LABS: Prostate Specific Antigen 1.20 ng/mL (0.10-4.00)
== END ==
PROVIDERS: PCP Family Medicine; Referring Provider Family Medicine; Visit Provider Urology
DX: N40.1 Benign prostatic hyperplasia with lower urinary tract symptoms (principal)
CPT/HCPCS: 36415; 84153